=== PATIENT | female | born 1940 | race Asian ===

== ENCOUNTER 2016-12-31 20:14 | Inpatient (IN) | payer MEDICARE, MEDICAID ==
[~2016-12-31] VITALS: Ht 165.1 cm; Wt 68.7 kg
[~2016-12-31 20:14] MED LIST: AMLO10TA PO; MECL-305 PO; MONT10TA35 PO; OLAN5TAB29 PO; SYN.05 PO; VAS2.5 PO; [UNRECOGNIZED DRUG - CODE] PO
[2016-12-31 20:31] VITALS: BP 122/95
[2016-12-31 21:17] LABS: HEMATOCRIT 35.7 % (36-48); MEAN CORPUSCULAR HEMOGLOBIN 30 pg (27-31); MEAN CORPUSCULAR HGB CONC 34 g/dL (33-37); MEAN CORPUSCULAR VOLUME 88 fL (80-94); PLATELET COUNT (AUTO) 279 K/uL (140-450); RED BLOOD CELL COUNT(AUTO) 4.04 MIL/uL (4.20-5.40); RED CELL DISTRIBUTION WIDTH 14.3 % (11.6-13.7); WHITE BLOOD COUNT (AUTO) 8.7 K/uL (4.8-10.8)
--- NOTE | 2016-12-31 21:22 | NUR ---
Elvia fleming in [facility] - 12/31/16 at 2123 by MEDDM BIBA TO ER BED 5
--- NOTE | 2016-12-31 21:22 | NUR ---
[facility] FAMILY VIA WHEELCHAIR TO ER BED 5
[2016-12-31 21:29] LABS: ANION GAP 15.6 (8-16); CARBON DIOXIDE 23.5 mmol/L (21-32); CHLORIDE 95 mmol/L (98-107); CREATININE 0.9 mg/dL (0.6-1.3); GLUCOSE 130 mg/dL (74-106); POTASSIUM 4.1 mmol/L (3.5-5.1); SODIUM SERUM 130 mmol/L (136-145); UREA NITROGEN, BLOOD 15 mg/dL (7-18)
[2016-12-31 21:33] LABS: ALBUMIN 3.5 g/dL (3.4-5.0); ASPARTATE AMINOTRANSFERASE 23 U/L (15-37); LIPASE 84 U/L (73-393); LYMPHOCYTES % (MANUAL) 17 % (20-46); MONOCYTES % (MANUAL) 4 % (5-12); TOTAL BILIRUBIN 0.8 mg/dL (0.0-1.0)
[2016-12-31] MEDS ORDERED: NACL 0.9% 500 ML IV ONE (21:50)
[2016-12-31] MEDS ORDERED: MORPHINE SULFATE 2 MG/ML SYR IVP ONE (21:50)
[2016-12-31] MEDS ORDERED: ONDANSETRON 4 MG/2 ML VIAL IVP ONE (21:50)
--- NOTE | 2016-12-31 21:56 | NUR ---
Pt taken to CT via rcesar.
--- NOTE | 2016-12-31 22:54 | NUR ---
IV 24GA LT HAND, IVP/IVF MEDS GIVEN-NADR AT THIS TIME. NSR W/O ECT, RESP-E/U, VSS- 125/69BP, 77P, 98SAT% R/A, 25RR
--- NOTE | 2016-12-31 23:03 | NUR ---
76/F bib daughter with complaints of N/V/D and headache this am. No vomiting noted while pt in ED. Pt nigerien speaking only and daughter states pt's mental status is normal for her. VSS. Skin warm and dry normal in color for ethnicity.
--- NOTE | 2016-12-31 23:29 | NUR ---
Patient appears to be resting comfortably in bed. VSS.
[2017-01-01 00:29] LABS: APPEARANCE,URINE CLEAR (CLEAR); BILIRUBIN,URINE NEGATIVE (NEGATIVE); BLOOD, URINE 2+ (NEGATIVE); COLOR,URINE YELLOW (YELLOW); LEUKOCYTE ESTERASE ,URINE NEGATIVE (NEGATIVE); NITRITE, URINE NEGATIVE (NEGATIVE); PH,URINE 6.5 (5.0-9.0); UGLUCOSE NEGATIVE (NEGATIVE)
[2017-01-01 00:35] LABS: RBC,URINE 3-10 (FEW) /HPF (0-5); WBC,URINE 0-5 (RARE) /HPF (0-5)
[2017-01-01] MEDS ORDERED: MORPHINE SULFATE 2 MG/ML SYR IVP PRN (01:00)
[2017-01-01] MEDS ORDERED: ONDANSETRON 4 MG/2 ML VIAL IM/IVP PRN (01:00)
[2017-01-01] MEDS ORDERED: DOCUSATE SODIUM 100 MG GELCAP PO PRN (01:00)
[2017-01-01] MEDS ORDERED: HYDROcodone/APAP 7.5/325 MG 1 TAB PO PRN (01:00)
[2017-01-01] MEDS ORDERED: MECLIZINE 25 MG TAB PO PRN (01:05)
[2017-01-01 01:13] LABS: PROTHROMBIN TIME 11.8 secs (10.8-13.4)
[2017-01-01] MEDS ORDERED: VAS2.5 PO (01:19)
[2017-01-01] MEDS ORDERED: MECL-272 PO (01:19)
[2017-01-01] MEDS ORDERED: ACET-787 PO (01:19)
[2017-01-01] MEDS ORDERED: OLAN2.5T1 PO (01:19)
[2017-01-01] MEDS ORDERED: SYN.05 PO (01:19)
[2017-01-01] MEDS ORDERED: ESOM40EC PO (01:19)
[2017-01-01] MEDS ORDERED: METF500T PO (01:19)
[2017-01-01] MEDS ORDERED: AMLO10TA PO (01:19)
[2017-01-01] MEDS ORDERED: MONT10TA35 PO (01:19)
[2017-01-01] MEDS ORDERED: ASPI81CT89 PO (01:19)
[2017-01-01] MEDS ORDERED: METO25TE2 PO (01:19)
[2017-01-01] MEDS ORDERED: cefTRIAXone 1,000 MG VIAL ONE (01:24)
--- NOTE | 2017-01-01 01:27 | NUR ---
Patient will be admitted to care of Dr. Frye. Admited to TELE. Will go to room 124B. Belongings list completed. Report to Angelika BAXTER.
[2017-01-01 01:30] VITALS: BP 133/64
--- NOTE | 2017-01-01 01:30 | NUR ---
ADMITTED A 76F FORM ER. CAME BY CIARA ACCOMPANIED BY DAUGHTER,MK. AWAKE,ALERT AND ORIENTED X4. SPEAKS POLISH . ON TELE MONITOR-SR/BBB. CAME DUE TO , HEADACHE, DIZZINESS, VOMITING,FEVER AT HOME. X1 DAY. SKIN INTACT. ORIENTED TO HOSPITAL ROUTINES. AMBULATORY BUT DUE TO DIZZINESS, ADVISED TO BE ON BEDREST FOR NOW. HAS HL ON THE LT HAND#24. CLEAR AND PATENT. ROCEPHIN IV GIVEN IN ER. PLAN OF CARE DISCUSSED WITH PT/ FAMILY. VERBALIZED UNDERSTANDING. CALL LIGHT PLACED WITHIN EASY REACH. BED ON LOW POSITION. WILL CONTINUE TO MONITOR.
[2017-01-01 01:32] LABS: FREE T4 (FREE THYROXINE) 1.37 ng/dL (0.76-1.46); MAGNESIUM 1.6 mg/dL (1.8-2.4); PHOSPHORUS 2.9 mg/dL (2.5-4.9); THYROID STIMULATING HORMONE 1.39 uIU/mL (0.34-3.74)
[2017-01-01] MEDS: NACL 0.9% 1,000 ML IV SCH ×4 (01:47→22:53)
--- NOTE | 2017-01-01 01:47 | NUR ---
IVF NS @120 ML /HR STARTED ON THE LT HAND #24. CLEAR AND PATENT.
[2017-01-01] MEDS ORDERED: MAGNESIUM OXIDE 400 MG TAB PO SCH (01:50)
[2017-01-01] MEDS: ACETAMINOPHEN 325 MG TAB PO PRN (02:31)
--- NOTE | 2017-01-01 02:31 | NUR ---
MAG LEVEL 1.6, MAGNESIUM 400 MG PO GIVEN ORDERED.
[2017-01-01 04:15] VITALS: BP 114/57
[2017-01-01] MEDS: BLOOD GLUCOSE MONITORING 1 DEV DEV FS SCH ×5 (05:10→20:25)
--- NOTE | 2017-01-01 06:00 | NUR ---
SCD MACHINE APPLIED TO BOTH LOWER LEGS. PT AWARE OF THE BENEFITS/PURPOSE OF THE MACHINE.
--- NOTE | 2017-01-01 06:01 | NUR ---
BLOOD SUGAR WAS CHECKED RESULT 112.
[2017-01-01 06:09] LABS: HEMATOCRIT 32.3 % (36-48); HEMOGLOBIN 10.7 g/dL (12.0-16.0); MEAN CORPUSCULAR HEMOGLOBIN 30 pg (27-31); MEAN CORPUSCULAR HGB CONC 33 g/dL (33-37); MEAN CORPUSCULAR VOLUME 89 fL (80-94); PLATELET COUNT (AUTO) 245 K/uL (140-450); RED BLOOD CELL COUNT(AUTO) 3.62 MIL/uL (4.20-5.40); RED CELL DISTRIBUTION WIDTH 13.9 % (11.6-13.7); WHITE BLOOD COUNT (AUTO) 6.3 K/uL (4.8-10.8)
[2017-01-01 06:31] LABS: ANION GAP 15.6 (8-16); CARBON DIOXIDE 20.8 mmol/L (21-32); CHLORIDE 99 mmol/L (98-107); CREATININE 0.7 mg/dL (0.6-1.3); GLUCOSE 112 mg/dL (74-106); POTASSIUM 3.4 mmol/L (3.5-5.1); SODIUM SERUM 132 mmol/L (136-145); UREA NITROGEN, BLOOD 11 mg/dL (7-18)
--- NOTE | 2017-01-01 07:15 | NUR ---
ENDORSED PT IN STABLE CONDITION TO AM NURSE.
[2017-01-01 07:26] LABS: LYMPHOCYTES % (MANUAL) 21 % (20-46); MONOCYTES % (MANUAL) 9 % (5-12)
[2017-01-01 08:00] VITALS: BP 125/59
--- NOTE | 2017-01-01 08:10 | NUR ---
RECEIVED REPORT FROM GEOVANI RN FOR CONTINUITY OF CARE. PATIENT AWAKE A/OX4 SENEGALESE SPEAKING . NO S/S OF RESP DISTRESS NOTED. DENIES ANY PAIN. GENERALIZE WEAKNESS NOTED , INSTRUCT PATIENT TO USE CALL LIGHT , VERBALIZED UNDERSTANDING BED ALARM ON. IV SITE LEFT HAND GAUGE 24 INTACT AND PATENT. IVF INFUSING WELL. PLAN OF CARE DISCUSSED WITH THE PATIENT VITALS STABLE WILL CONTINUE TO MONITOR.
--- NOTE | 2017-01-01 08:55 | NUR ---
PATIENT HAS BEEN SCREENED AND CATEGORIZED HIGH NUTRITION RISK. PATIENT WILL BE SEEN WITHIN 1-2 DAYS OF ADMISSION. 01/01/17-01/02/[address]
[2017-01-01] MEDS: ASPIRIN 81 MG TAB.CHEW PO SCH (09:39)
[2017-01-01] MEDS: ENALAPRIL 2.5 MG TAB PO SCH (09:39)
[2017-01-01] MEDS: metFORMIN 500 MG TAB PO SCH (09:39)
[2017-01-01] MEDS: ATORVASTATIN 20 MG TAB PO SCH (09:39)
[2017-01-01] MEDS: amLODIPine 5 MG TAB PO SCH (09:40)
[2017-01-01] MEDS: METOPROLOL SUCCINATE 50 MG TABER PO SCH (09:40)
[2017-01-01] MEDS: LEVOTHYROXINE 0.05 MG TAB PO SCH (09:40)
[2017-01-01] MEDS: FAMOTIDINE 20 MG TAB PO SCH (09:40)
[2017-01-01] MEDS ORDERED: POTASSIUM CHLORIDE 10 MEQ TABER PO SCH (11:00)
[2017-01-01] MEDS ORDERED: MAG SULF 2000 MG/WATER PREMIX 50 ML IV SCH (11:00)
--- NOTE | 2017-01-01 11:44 | NUR ---
CHECKED BLOOD SUGAR 96 NO COVERAGE NEEDED , MG RIDER AND K40 MEQ PO GIVEN TOLERATED WELL. VITALS STABLE
[2017-01-01 12:00] VITALS: BP 108/56
--- NOTE | 2017-01-01 13:22 | NUR ---
ATE LUNCH TOLERATED WELL DENIES ANY PAIN
--- NOTE | 2017-01-01 14:40 | NUR ---
01/01/17 RD INITIAL ASSESSMENT COMPLETED PLEASE REFER TO NUTRITION ASSESSMENT UNDER CARE ACTIVITY FOR ESTIMATED NUTRITIONAL NEEDS. 1. CONTINUE CONSISTENT CHO DIET + 60G CCHO 2. RD TO FOLLOW UP WITHIN 3-5 DAYS; MODERATE RISK
[2017-01-01] MEDS ORDERED: LOPERAMIDE 2 MG CAP PO SCH (15:24)
--- NOTE | 2017-01-01 15:36 | NUR ---
CM NOTE INITIAL REVIEW FAXED TO [facility] / FAX# [phone], C: [phone], OPT. 2
--- NOTE | 2017-01-01 15:46 | NUR ---
PATIENT HAS DIARRHEA , BUT UNABLE TO COLLECT IT ,ACCIDENT ON THE BED IMODIUM GIVEN
[2017-01-01 16:00] VITALS: BP 113/58
--- NOTE | 2017-01-01 18:11 | NUR ---
PATIENT REMOVED IV LINE ACCIDENTALLY , NEW IV LINE STARTED ON LEFT HAND GAUGE 24 , INTACT AND PATENT IVF INFUSING WELL. SAFETY MAINTAINED CALL LIGHT IN REACH , STABLE CONDITION.
--- NOTE | 2017-01-01 19:30 | NUR ---
RECEIVED PT IN STABLE CONDITION FROM A M NURSE. AWAKE,ALERT AND ORIENTED X4. SPEAKS,TRISTANIAN. ON TELE MONITOR. WITH NO C/O ANY HEADACHE ,DIZZINESS AT THIS TIME. WITH IVF INFUSING WELL ON THE LT HAND #24. CLEAR AND PATENT. PLAN OF CARE DISCUSSED WITH PT/DAUGHTER. BOTH VERBALIZED UNDERSTANDING. FREQUENT ROUNDS NEEDED. CALL LIGHT PLACED WITHIN EASY REACH. WILL CONTINUE TO MONITOR.
[2017-01-01 19:40] VITALS: BP 116/56
[2017-01-01] MEDS: MONTELUKAST SODIUM 10 MG TAB PO SCH (20:25)
[2017-01-01] MEDS: OLANZapine 2.5 MG TAB PO SCH (20:26)
--- NOTE | 2017-01-01 20:50 | NUR ---
HAD LOOSE BM. STOOL SPECIMEN COLLECTED FOR CULTURE AND WBC. SEND TO LAB. WILL FOLLOW UP RESULT.
--- NOTE | 2017-01-01 22:30 | NUR ---
MADE AROUNDS. SLEEPING. NO S/S OF ANY DISCOMFORT NOTED.
[2017-01-02] VITALS: BP 112/51
[2017-01-02] MEDS: NACL 0.9% 1,000 ML IV SCH ×3 (01:57→18:16)
--- NOTE | 2017-01-02 02:00 | NUR ---
MADE ROUNDS . PT SLEEPING AT THIS TIME. NO S/S OF ANY DISCOMFORT NOTED.
--- NOTE | 2017-01-02 04:00 | NUR ---
VITAL SIGNS TAKEN. PT NO C/O ANY HEADACHE NOR DIZZINESS NOTED. WILL CONTINUE TO MONITOR.
[2017-01-02 04:14] VITALS: BP 128/59
--- NOTE | 2017-01-02 05:35 | NUR ---
BLOOD WAS DRAWN THIS AM. WILL FOLLOW UP RESULT.
[2017-01-02 05:55] LABS: HEMATOCRIT 33.8 % (36-48); HEMOGLOBIN 11.4 g/dL (12.0-16.0); MEAN CORPUSCULAR HEMOGLOBIN 30 pg (27-31); MEAN CORPUSCULAR HGB CONC 34 g/dL (33-37); MEAN CORPUSCULAR VOLUME 90 fL (80-94); PLATELET COUNT (AUTO) 252 K/uL (140-450); RED BLOOD CELL COUNT(AUTO) 3.75 MIL/uL (4.20-5.40); WHITE BLOOD COUNT (AUTO) 4.8 K/uL (4.8-10.8)
[2017-01-02] MEDS: BLOOD GLUCOSE MONITORING 1 DEV DEV FS SCH ×4 (06:00→21:22)
--- NOTE | 2017-01-02 06:00 | NUR ---
BLOOD SUGAR WAS CHECKED THIS AM RESULT 102.
[2017-01-02 06:25] LABS: LYMPHOCYTES % (MANUAL) 39 % (20-46); MONOCYTES % (MANUAL) 13 % (5-12)
[2017-01-02 06:45] LABS: ANION GAP 14.9 (8-16); CARBON DIOXIDE 21.8 mmol/L (21-32); CHLORIDE 107 mmol/L (98-107); CREATININE 0.7 mg/dL (0.6-1.3); GLUCOSE 101 mg/dL (74-106); POTASSIUM 3.7 mmol/L (3.5-5.1); SODIUM SERUM 140 mmol/L (136-145); UREA NITROGEN, BLOOD 5 mg/dL (7-18)
[2017-01-02 06:50] LABS: MAGNESIUM 1.9 mg/dL (1.8-2.4); PHOSPHORUS 2.3 mg/dL (2.5-4.9)
--- NOTE | 2017-01-02 07:20 | NUR ---
ENDORSED PT IN STABLE CONDITION TO AM NURSE FOR CONTINUITY OF CARE.
--- NOTE | 2017-01-02 07:21 | NUR ---
RECEIVED PT FROM GEOVANI RN AT BEDSIDE. PT IS SLEEPING. NO DISTRESS NOTED IN PT. PT HAS L HAND 22G RUNNING NS@120. CALL LIGHT WITHIN REACH. WILL CONTINUE TO MONITOR.
[2017-01-02 08:00] VITALS: BP 111/54
[2017-01-02] MEDS: metFORMIN 500 MG TAB PO SCH (08:05)
[2017-01-02] MEDS: amLODIPine 5 MG TAB PO SCH (08:05)
[2017-01-02] MEDS: ASPIRIN 81 MG TAB.CHEW PO SCH (08:05)
[2017-01-02] MEDS: FAMOTIDINE 20 MG TAB PO SCH (08:05)
[2017-01-02] MEDS: ENALAPRIL 2.5 MG TAB PO SCH (08:06)
[2017-01-02] MEDS: METOPROLOL SUCCINATE 50 MG TABER PO SCH (08:06)
[2017-01-02] MEDS: ATORVASTATIN 20 MG TAB PO SCH (08:06)
[2017-01-02] MEDS: LEVOTHYROXINE 0.05 MG TAB PO SCH (08:06)
[2017-01-02 09:14] LABS: T4 (THYROXINE) 7.7 ug/dL (4.5-12.0)
--- NOTE | 2017-01-02 09:20 | NUR ---
DAUGHTER IS WALKING WITH PT. TOLERATING WELL. CALL LIGHT WITHIN REACH. WILL CONTINUE TO MONITOR.
--- NOTE | 2017-01-02 11:40 | NUR ---
PT SAT UP IN BED TO EAT LUNCH. TOLERATED WELL. CALL LIGHT WITHIN REACH. WILL CONTINUE TO MONITOR.
[2017-01-02 11:45] VITALS: BP 107/51
--- NOTE | 2017-01-02 13:30 | NUR ---
PT RESTING COMFORTABLY IN BED. CALL LIGHT WITHIN REACH. WILL CONTINUE TO MONITOR.
--- NOTE | 2017-01-02 13:42 | NUR ---
CM NOTE CONCURRENT REVIEW FAXED TO [facility] / FAX# [phone], C: [phone], OPT. 2
--- NOTE | 2017-01-02 15:50 | NUR ---
VS STABLE. NO DISTRESS NOTED. CALL LIGHT WITHIN REACH. WILL CONTINUE TO MONITOR.
[2017-01-02 16:00] VITALS: BP 109/56
[2017-01-02] MEDS ORDERED: SODIUM PHOS / POTASSIUM PHOS 1 PKT PDR PO SCH (17:30)
--- NOTE | 2017-01-02 17:30 | NUR ---
DAUGHTER AT BEDSIDE. PT IN STABLE CONDITION. CALL LIGHT WITHIN REACH. WILL CONTINUE TO MONITOR.
--- NOTE | 2017-01-02 19:17 | NUR ---
ENDORSED CARE OF PT TO AISHA BAXTER AT BEDSIDE. PT IN STABLE CONDITION.
--- NOTE | 2017-01-02 19:23 | NUR ---
RECEIVED REPORT FROM DAY RN. PATIENT RESTING IN BED, AWAKE ALERT ORIENTED X4. NO S/S OF ACUTE DISTRESS NOTED, RESPIRATION EVEN AND UNLABORED, DAUGHTER AT BEDSIDE. IV PATENT AND INTACT, INFUSING NS AT 120ML/HR, CALL LIGHT WITHIN REACH, SAFETY MEASURE ENSURED, WILL CONTINUE TO MONITOR.
[2017-01-02 20:00] VITALS: BP 137/64
[2017-01-02] MEDS: OLANZapine 2.5 MG TAB PO SCH (21:20)
[2017-01-02] MEDS: MONTELUKAST SODIUM 10 MG TAB PO SCH (21:21)
--- NOTE | 2017-01-02 21:24 | NUR ---
PM MEDICATIONS GIVEN, PATIENT TOLERATED WELL. NO S/S OF ACUTE DISTRESS NOTED, RESPIRATION EVEN AND UNLABORED, WILL CONTINUE TO MONITOR.
--- NOTE | 2017-01-02 23:35 | NUR ---
PT WAS SLEEPING, VITAL SIGNS TAKEN, STABLE. WILL CONTINUE TO MONITOR.
[2017-01-03] VITALS: BP 116/68
[2017-01-03] MEDS: ACETAMINOPHEN 325 MG TAB PO PRN ×2 (01:00→08:38)
--- NOTE | 2017-01-03 01:00 | NUR ---
PATIENT STATED," HEADACHE, 06/20." TYLENOL GIVEN ORDERED. PATIENT RESTING IN BED, NO S/S OF ACUTE DISTRESS NOTED, RESPIRATION EVEN AND UNLABORED, SAFETY MEASURE ENSURED, WILL CONTINUE TO MONITOR.
--- NOTE | 2017-01-03 02:40 | NUR ---
PT SLEEPING AT THIS TIME NO S/S OF ACUTE DISTRESS NOTED, RESPIRATION EVEN AND UNLABORED, CALL LIGHT WITHIN REACH, SAFETY MEASURE ENSURED, WILL CONTINUE TO MONITOR.
[2017-01-03] MEDS: NACL 0.9% 1,000 ML IV SCH (03:48)
[2017-01-03 04:00] VITALS: BP 117/63
--- NOTE | 2017-01-03 04:02 | NUR ---
PT IN STABLE CONDITION. VITAL SIGNS STABLE. NO S/S OF ACUTE DISTRESS NOTED, CALL LIGHT WITHIN REACH, SAFETY MEASURE ENSURED, WILL CONTINUE TO MONITOR.
[2017-01-03] MEDS: BLOOD GLUCOSE MONITORING 1 DEV DEV FS SCH (06:33)
[2017-01-03 06:41] LABS: HEMATOCRIT 33.7 % (36-48); MEAN CORPUSCULAR HEMOGLOBIN 29 pg (27-31); MEAN CORPUSCULAR HGB CONC 33 g/dL (33-37); MEAN CORPUSCULAR VOLUME 90 fL (80-94); PLATELET COUNT (AUTO) 293 K/uL (140-450); RED BLOOD CELL COUNT(AUTO) 3.75 MIL/uL (4.20-5.40); RED CELL DISTRIBUTION WIDTH 14.3 % (11.6-13.7); WHITE BLOOD COUNT (AUTO) 4.8 K/uL (4.8-10.8)
--- NOTE | 2017-01-03 06:53 | NUR ---
PT SLEEPING AT THIS TIME. RESPIRATION EVEN AND UNLABORED, NO S/S OF ACUTE DISTRESS NOTED, CALL LIGHT WITHIN REACH, SAFETY MEASURE ENSURED, WILL CONTINUE TO MONITOR.
[2017-01-03 06:56] LABS: ANION GAP 13.4 (8-16); CHLORIDE 111 mmol/L (98-107); CREATININE 0.7 mg/dL (0.6-1.3); GLUCOSE 93 mg/dL (74-106); POTASSIUM 3.4 mmol/L (3.5-5.1); SODIUM SERUM 144 mmol/L (136-145); UREA NITROGEN, BLOOD 5 mg/dL (7-18)
[2017-01-03 07:05] LABS: LYMPHOCYTES % (MANUAL) 15 % (20-46); MONOCYTES % (MANUAL) 10 % (5-12)
--- NOTE | 2017-01-03 07:20 | NUR ---
ENDORSED THE PLAN OF CARE TO DAY RN. PATIENT IS IN STABLE CONDITION, NO ACUTE DISTRESS AND RESPIRATION EVEN AND UNLABORED.
--- NOTE | 2017-01-03 07:21 | NUR ---
RECEIVED REPORT FROM THE NIGHTSHIFT NURSE AT BEDSIDE FOR CONTINUITY OF CARE. PT IS AWAKE AND ORIENTED. INTRODUCED MYSELF AND UPDATED THE BOARD. PT IS EATING BREAKFAST. PT DENIES PAIN. V/S WITHIN NORMAL RANGE. PT'S SKIN IS INTACT. IV L HAND 24G NS AT 120ML INFUSING. PT DENIES HERRERA, NAUSEA, VOMITING, DIARRHEA OR DIZZINESS. WILL CONTINUE TO MONITOR PT.
[2017-01-03 08:00] VITALS: BP 130/67
[2017-01-03] MEDS: ATORVASTATIN 20 MG TAB PO SCH (08:33)
[2017-01-03] MEDS: ENALAPRIL 2.5 MG TAB PO SCH (08:33)
[2017-01-03] MEDS: ASPIRIN 81 MG TAB.CHEW PO SCH (08:33)
[2017-01-03] MEDS: METOPROLOL SUCCINATE 50 MG TABER PO SCH (08:33)
[2017-01-03] MEDS: LEVOTHYROXINE 0.05 MG TAB PO SCH (08:33)
[2017-01-03] MEDS: amLODIPine 5 MG TAB PO SCH (08:34)
[2017-01-03] MEDS: FAMOTIDINE 20 MG TAB PO SCH (08:34)
[2017-01-03] MEDS: metFORMIN 500 MG TAB PO SCH (08:34)
--- NOTE | 2017-01-03 08:39 | NUR ---
ADMINISTERED MORNING MEDS. PT C/O HERRERA 06/20. ADMINISTERED TYLENOL. PT TOLERATED WELL. WILL CONTINUE TO MONITOR PT.
--- NOTE | 2017-01-03 09:30 | NUR ---
PT AMBULATING IN THE HALLS WITH DAUGHTER AT HER SIDE. NO SIGNS OF DISTRESS NOTED.
[2017-01-03] MEDS ORDERED: ATOR20TA40 PO (09:55)
[2017-01-03] MEDS ORDERED: POTASSIUM CHLORIDE 10 MEQ TABER PO SCH (10:25)
--- NOTE | 2017-01-03 10:56 | NUR ---
DISCHARGE INSTRUCTIONS GIVEN TO PT AND DAUGHTER. ANSWERED ALL QUESTIONS. PT AND DAUGHTER VERBALIZED UNDERSTANDING. REMOVED TELE MONITOR. REMOVED IV, CANNULA IN TACT. NO BLEEDING NOTED. DAUGHTER WILL GET PT DRESSED, GATHER ALL HER PERSONAL BELONGINGS AND WILL LET ME KNOW WHEN SHE IS READY TO GO. WILL GET WHEEL CHAIR READY.
--- NOTE | 2017-01-03 11:00 | NUR ---
STUDENT PUSHED PT OUT TO THE CAR IN WHEELCHAIR. DAUGHTER WAITING IN THE CAR. PT IS IN STABLE CONDITION.
== END 2017-01-03 11:00 | disposition home or self-care (01) | DRG 640 ==
LOC: MED 20:14 → MTU 01-01 00:52
PROVIDERS: ADMIT Student in an Organized Health Care Education/Training Program; ATTEND Student in an Organized Health Care Education/Training Program
DX: E86.0 Dehydration (principal); I21.4 Non-ST elevation (NSTEMI) myocardial infarction; D68.59 Other primary thrombophilia; E11.65 Type 2 diabetes mellitus with hyperglycemia; E83.51 Hypocalcemia; E11.51 Type 2 diabetes mellitus with diabetic peripheral angiopathy without gangrene; E87.1 Hypo-osmolality and hyponatremia; E87.8 Other disorders of electrolyte and fluid balance, not elsewhere classified; E83.42 Hypomagnesemia; I10 Essential (primary) hypertension; J45.909 Unspecified asthma, uncomplicated; E03.9 Hypothyroidism, unspecified; R31.9 Hematuria, unspecified; E87.6 Hypokalemia; D64.9 Anemia, unspecified; E83.39 Other disorders of phosphorus metabolism; Z86.73 Personal history of transient ischemic attack (TIA), and cerebral infarction without residual deficits; Z79.82 Long term (current) use of aspirin; Z79.899 Other long term (current) drug therapy; Z79.84 Long term (current) use of oral hypoglycemic drugs
CPT/HCPCS: 36415; 70450; 71010; 76770; 80048; 80053; 81001; 82150; 82948; 83036; 83605; 83690; 83735; 83880; 84100; 84436; 84439; 84443; 84479; 84484; 85025; 85610; 85730; 87040; 87045; 87081; 89055; 93005; 93880; 93925; 93970; 96361; 96374; 96375; 99285; J0696; J2270; J2405; J3475; J7030; J7060; Q0092

== ENCOUNTER 2018-06-10 14:25 | Inpatient (IN) | payer OTHER, MEDICAID ==
[~2018-06-10] VITALS: Ht 157.5 cm; Wt 77.6 kg
[~2018-06-10 14:25] MED LIST changes: +ACET-787 PO; +ASPI-1718 PO; +ATOR20TA40 PO; +ESOM40EC PO; +MECL-272 PO; -MECL-305 PO; +METF500T PO; +METO25TE2 PO; +OLAN2.5T1 PO; -OLAN5TAB29 PO; -[UNRECOGNIZED DRUG - CODE] PO
[2018-06-10 14:30] VITALS: BP 119/58
[2018-06-10] MEDS ORDERED: DOCU-299 PO (14:51)
[2018-06-10] MEDS ORDERED: DETLA4 PO (14:51)
--- NOTE | 2018-06-10 14:55 | NUR ---
Pt. bib daughter with c/o increased aloc since this am. Per daughter, pt has increased "confusion" since this am. No facial/smile asymmetry noted. perrla to bl eyes. equal manufacturing design engineer to bl arms. equal push/pull to bl legs. pt is aaox3 to person, place, and situation. gcs=14. Patient denies any recent fall or head injury. Patient with steady gait. Daughter states " she is more with it now she was more confused earlier". redness and some bruising noted to upper back area. Patient reports of 8/10 constant right lateral upper back to right lateral mid back. Patient denies any fevers, dysuria, n/v/d, or chills. RR even and unlabored. Will continue to monitor. ER Md made aware. safety precautions in place. Pt able to follow commands via translation of daughter. hx--dm, htn, hypothyriodism, hyperlipidemia, arthitis, anxiety
--- NOTE | 2018-06-10 14:59 | NUR ---
RADIOLOGY AT BEDSIDE
[2018-06-10 15:17] LABS: BASOPHILS % (AUTO) 0.2 % (0.0-2.0); EOSINOPHILS % (AUTO) 0.1 % (0.0-4.0); HEMATOCRIT 41.4 % (36-48); HEMOGLOBIN 13.5 g/dL (12.0-16.0); LYMPHOCYTES # (AUTO) 1.2 K/uL (2.5-16.5); MEAN CORPUSCULAR HEMOGLOBIN 30 pg (27-31); MEAN CORPUSCULAR HGB CONC 33 g/dL (33-37); MONOCYTES # (AUTO) 0.8 K/uL (0.8-1.0); MONOCYTES % (AUTO) 8.2 % (1.7-9.3); NEUTROPHILS # (AUTO) 7.6 K/uL (1.8-7.7); NEUTROPHILS % (AUTO) 79.5 % (42.2-75.2); PLATELET COUNT (AUTO) 292 K/uL (140-450); RED CELL DISTRIBUTION WIDTH 14.9 % (11.6-13.7); WHITE BLOOD COUNT (AUTO) 9.6 K/uL (4.8-10.8)
--- NOTE | 2018-06-10 15:17 | NUR ---
pt. taken to ct via christian
[2018-06-10 15:18] LABS: APPEARANCE,URINE HAZY (CLEAR); BLOOD, URINE NEGATIVE (NEGATIVE); COLOR,URINE YELLOW (YELLOW); LEUKOCYTE ESTERASE ,URINE NEGATIVE (NEGATIVE); NITRITE, URINE NEGATIVE (NEGATIVE); UGLUCOSE NEGATIVE (NEGATIVE)
[2018-06-10 15:22] LABS: BILIRUBIN,URINE 1+ (NEGATIVE)
[2018-06-10 15:32] LABS: ALBUMIN 3.6 g/dL (3.4-5.0); ANION GAP 14.9 (8-16); ASPARTATE AMINOTRANSFERASE 25 U/L (15-37); CARBON DIOXIDE 23.5 mmol/L (21-32); CHLORIDE 97 mmol/L (98-107); CREATININE 1.5 mg/dL (0.6-1.3); GLUCOSE 237 mg/dL (74-106); POTASSIUM 4.4 mmol/L (3.5-5.1); SODIUM SERUM 131 mmol/L (136-145); TOTAL BILIRUBIN 0.9 mg/dL (0.0-1.0); UREA NITROGEN, BLOOD 24 mg/dL (7-18)
[2018-06-10] MEDS ORDERED: NACL 0.9% 1,000 ML IV ONE ×2 (16:15→17:40)
--- NOTE | 2018-06-10 16:43 | NUR ---
PT. RESTING COMFORTABLY IN BED, RR EVEN AND UNLABORED.HOB ELEVATED. BLANKETS PROVIDED. WILL CONTINUE TO MONITOR. DAUGHTER AT BEDSIDE.
[2018-06-10] MEDS ORDERED: HYDROcodone/APAP 5/325 MG 1 TAB TAB PO PRN (17:30)
[2018-06-10] MEDS ORDERED: ACETAMINOPHEN 325 MG TAB PO PRN (17:30)
[2018-06-10] MEDS ORDERED: DOCUSATE SODIUM 100 MG GELCAP PO PRN (17:30)
[2018-06-10] MEDS ORDERED: MORPHINE SULFATE 2 MG/ML SYR IVP PRN (17:30)
[2018-06-10] MEDS ORDERED: LORazepam 2 MG/ML VIAL IM/IVP PRN (17:30)
[2018-06-10] MEDS: NACL 0.9% 1,000 ML IV SCH (17:30)
[2018-06-10] MEDS ORDERED: ONDANSETRON 4 MG/2 ML VIAL IM/IVP PRN (17:30)
--- NOTE | 2018-06-10 17:40 | NUR ---
B/P 104/49. ER MD WALKER MADE AWARE. TO ORDER ANOTHER LITER OR FLUIDS.
[2018-06-10 17:55] LABS: PROTHROMBIN TIME 10.7 secs (10.8-13.4)
[2018-06-10 18:01] LABS: MAGNESIUM 1.6 mg/dL (1.8-2.4); PHOSPHORUS 2.7 mg/dL (2.5-4.9); THYROID STIMULATING HORMONE 0.54 uIU/mL (0.34-3.74)
--- NOTE | 2018-06-10 18:15 | NUR ---
Patient will be admitted to care of DR. TIAN. Admited to TELE . Will go to room 119B. Belongings list completed. Report to VEE LUGO .
--- NOTE | 2018-06-10 18:15 | NUR ---
RECEIVED REPORT FROM ER NURSE AT BEDSIDE. PT ADMITTED WITH DX OF HYPONATREMIA AND CONFUSION. KYRGYZ SPEAKING ONLY. PT DAUGHTER AT BEDSIDE. VS NORMAL . SKIN IS INTACT. PT HAS RT WRIST 22 G, IVF NS INFUSING BOLUS. PREPARED PT BED AND MADE PT COMFORTABLE. VS RECORDED T 98.2, HR 82, O2 97%, BP 140/56. DOCTOR TALKING TO PT. NO SIGN OF DISTRESS NOTED AT THIS TIME. MRSA NARES COLLECTED AND SENT TO LAB. ALL SAFETY MEASURE IN PLACE. WILL CONTINUE TO MONITOR PT.
[2018-06-10] MEDS ORDERED: MECLIZINE 25 MG TAB PO PRN (18:55)
[2018-06-10] MEDS ORDERED: MAGNESIUM OXIDE 400 MG TAB PO SCH (19:00)
--- NOTE | 2018-06-10 19:15 | NUR ---
RECEIVED REPORT FORM SITAL RN DAYSHIFT NURSE FOR CONTINUITY OF CARE, PT IN STABLE CONDITION.
[2018-06-10 19:30] VITALS: BP 121/58
--- NOTE | 2018-06-10 19:50 | NUR ---
RECEIVED CRITICAL LAB VALUE OF LACTIC ACID AT 2.3 DR. SALAZAR MADE AWARE, NEW ORDERS NOTED FOR LAB REDRAW IN THE AM.
--- NOTE | 2018-06-10 20:00 | NUR ---
PT SITTING UP IN BED EATING DINNER AT BEDSIDE. PT COMPLETED ABOUT 25% OF DINNER. DAUGHTER AT BEDSIDE. PT SPEAKS ONLY AFGHAN. DAUGHTER SAID THAT PT ORIENTATION IS AT BASELINE FOR HER AND THAT SHE HAS NO PAIN OR DISCOMFORT AT THIS TIME. IV SITE R HAND 22 GAUGE INTACT AND RUNNING NS BOLUS. LAB CALLED TO REPORT HIGH LACTIC ACID AT 2.3. DR. SALAZAR MADE AWARE, AND WILL ORDER REPEAT LACTIC ACID IN AM. V/S FOLLOWS T 99.8 P 76 R 18 B/P 124/65 02 96% ON R/A. WILL CONTINUE TO MONITOR PT FOR S/S OF PAIN , DISTRESS, CONFUSION AND LABS.
[2018-06-10] MEDS ORDERED: OLANZapine 2.5 MG TAB PO SCH (21:00)
[2018-06-10] MEDS ORDERED: TOLTERODINE LA 4 MG CAPER PO SCH (21:00)
[2018-06-10] MEDS: BLOOD GLUCOSE MONITORING 1 DEV DEV FS SCH (21:00)
--- NOTE | 2018-06-10 21:00 | NUR ---
PT GIVEN DUE MEDS OF SINGULAR, HEPARIN, MAG OXIDE. ZYPREXIA AND DETROL LA NOT FOUND CALLED [facility] TO FIND MEDICATION . [facility] WAS ABLE TO FIND ZYPREXIA AND ZYPREXIA WAS GIVEN, BUT NOT DETROL LA, WHICH IS UNAVAILABLE AT THIS TIME.
[2018-06-10] MEDS: MONTELUKAST SODIUM 10 MG TAB PO SCH (21:32)
[2018-06-10] MEDS ORDERED: OLANZapine 2.5 MG TAB ONE (22:00)
[2018-06-10] MEDS: INSULIN LISPRO SLIDING SCALE 100 UNITS/ML VIAL SUBQ PRN (22:04)
--- NOTE | 2018-06-11 | NUR ---
PT IN BED ASLEEP NO S/S OF PAIN OR DISTRESS NOTED. PT IN LOW BED WITH SIDE RAILS UP X2 AND LEONORA HOTL IN REACH. PT OFFERED TOILET BUT DECLINED AT THIS TIME. V/S FOLLOWS T 99.8 P 76 R 18 B/P 124/65 02 96% ON ROOM AIR. WILL CONTINUE TO MONITOR FOR COMFORT AND SAFETY. Addendum: 06/11/18 at 0212 by Kimberlee Alfaro RN LATEST V/S AT 0000 IS T 99.3 P 78 R 20 B/P 122/72 02 92% ON ROOM AIR.
[2018-06-11] MEDS: NACL 0.9% 1,000 ML IV SCH ×3 (03:58→23:58)
[2018-06-11 04:00] VITALS: BP 156/62
--- NOTE | 2018-06-11 05:15 | NUR ---
PT IN BED ASLEEP BUT AROUSABLE TO TOUCH. PT ESCORTED STANDBY ASSIST TO TOILET. PT HAS STEADY GAIT AND IS INDEPENDENT IN TOILET. IV SITYEE ON R HAND INTACT AND RUNNING N/S AT 100MLS/HR. NO BM THIS SHIFT. V/S FOLLOWS T 98.1 P 88 R 18/P 156/62 02 IS 97% ON ROOM AIR. BED LOW AND CALL HOLT IN REACH.
[2018-06-11] MEDS: LEVOTHYROXINE 0.05 MG TAB PO SCH (06:18)
[2018-06-11] MEDS: BLOOD GLUCOSE MONITORING 1 DEV DEV FS SCH ×4 (06:24→21:32)
[2018-06-11 07:20] LABS: BASOPHILS % (AUTO) 0.3 % (0.0-2.0); EOSINOPHILS % (AUTO) 0.3 % (0.0-4.0); HEMOGLOBIN 12.9 g/dL (12.0-16.0); LYMPHOCYTES # (AUTO) 1.2 K/uL (2.5-16.5); LYMPHOCYTES % (AUTO) 20.1 % (20.5-51.1); MEAN CORPUSCULAR HEMOGLOBIN 30 pg (27-31); MEAN CORPUSCULAR HGB CONC 33 g/dL (33-37); MEAN CORPUSCULAR VOLUME 91.6 fL (80-94); MONOCYTES % (AUTO) 16.5 % (1.7-9.3); NEUTROPHILS # (AUTO) 3.8 K/uL (1.8-7.7); NEUTROPHILS % (AUTO) 62.8 % (42.2-75.2); PLATELET COUNT (AUTO) 284 K/uL (140-450); RED BLOOD CELL COUNT(AUTO) 4.26 MIL/uL (4.20-5.40); RED CELL DISTRIBUTION WIDTH 14.3 % (11.6-13.7); WHITE BLOOD COUNT (AUTO) 6.1 K/uL (4.8-10.8)
--- NOTE | 2018-06-11 07:20 | NUR ---
RECEIVED BEDSIDE REPORT FROM ADILIA BAXTER. PATIENT AMBULATED TO BATHROOM AND IS CONTINENT. ON ROOM AIR, NO DISTRESS NOTED. PATIENT ON TELE MONITOR. IV ON R HAND 22 G INFUSING NS AT 100. IV ASYMPTOMATIC, INTACT AND PATENT. SKIN INTACT. BED IN LOW POSITION, CALL LIGHT WITHIN REACH. WILL CONTINUE TO MONITOR.
[2018-06-11 07:28] LABS: ANION GAP 13.4 (8-16); CARBON DIOXIDE 24.3 mmol/L (21-32); CHLORIDE 103 mmol/L (98-107); CREATININE 0.8 mg/dL (0.6-1.3); GLUCOSE 133 mg/dL (74-106); POTASSIUM 3.7 mmol/L (3.5-5.1); SODIUM SERUM 137 mmol/L (136-145); UREA NITROGEN, BLOOD 9 mg/dL (7-18)
[2018-06-11 07:30] LABS: MAGNESIUM 1.6 mg/dL (1.8-2.4); PHOSPHORUS 2.3 mg/dL (2.5-4.9)
[2018-06-11 07:34] LABS: CHOL/HDL RATIO 1.3 (1-4.5)
[2018-06-11 08:00] VITALS: BP 136/83
[2018-06-11] MEDS: TOLTERODINE LA 4 MG CAPER PO SCH (09:19)
[2018-06-11] MEDS: ATORVASTATIN 20 MG TAB PO SCH (09:19)
[2018-06-11] MEDS: PANTOPRAZOLE 40 MG TABEC PO SCH (09:19)
[2018-06-11] MEDS: METOPROLOL SUCCINATE 50 MG TABER PO SCH (09:20)
[2018-06-11] MEDS: amLODIPine 5 MG TAB PO SCH (09:21)
[2018-06-11] MEDS: ASPIRIN 81 MG TAB.CHEW PO SCH (09:21)
--- NOTE | 2018-06-11 09:30 | NUR ---
ADMINISTERED SCHEDULED MEDS. PATIENT TOLERATED WELL. WILL CONTINUE TO MONITOR.
--- NOTE | 2018-06-11 10:32 | NUR ---
PATIENT SLEEPING, ON ROOM AIR, NO DISTRESS NOTED. WILL CONTINUE TO MONITOR.
--- NOTE | 2018-06-11 10:50 | NUR ---
PATIENT AMBULATED TO RESTROOM W ASSIST. ON ROOM AIR, NO DISTRESS NOTED. WILL CONTINUE TO MONITOR.
[2018-06-11 12:00] VITALS: BP 135/67
[2018-06-11] MEDS ORDERED: SODIUM PHOS / POTASSIUM PHOS 1 PKT PDR PO SCH (12:00)
[2018-06-11] MEDS ORDERED: MAG SULF 2000 MG/WATER PREMIX 50 ML IV SCH (12:00)
--- NOTE | 2018-06-11 12:20 | NUR ---
DAUGHTER AT BEDSIDE. ADMINISTERED SCHEDULED MEDS. PATIENT TOLERATED WELL. WILL CONTINUE TO MONITOR. PATIENT NOW EATING LUNCH
--- NOTE | 2018-06-11 13:43 | NUR ---
PATIENT WATCHING TV. ON ROOM AIR, NO DISTRESS NOTED. WILL CONTINUE TO MONITOR.
[2018-06-11 16:00] VITALS: BP 116/63
--- NOTE | 2018-06-11 16:55 | NUR ---
PATIENT WATCHING TV. ON ROOM AIR, NO DISTRESS NOTED. WILL CONTINUE TO MONITOR.
--- NOTE | 2018-06-11 17:30 | NUR ---
PATIENT EATING DINNER. NO COMPLAINTS AT THIS TIME AND ON ROOM AIR. WILL CONTINUE TO MONITOR.
--- NOTE | 2018-06-11 19:19 | NUR ---
GAVE BEDSIDE REPORT TO VEE PAT. PATIENT ENDORSED IN STABLE CONDITION. WILL CONTINUE TO MONITOR.
--- NOTE | 2018-06-11 19:19 | NUR ---
RECEIVED REPORT FROM DANIEL BAXTER DAYSHIFT NURSE, AT BEDSIDE FOR CONTINUITY OF CARE, PT IN STABLE CONDITION.
[2018-06-11 20:00] VITALS: BP 146/70
[2018-06-11] MEDS: MONTELUKAST SODIUM 10 MG TAB PO SCH (21:10)
[2018-06-11] MEDS ORDERED: OLANZapine 5 MG TAB ONE (21:18)
--- NOTE | 2018-06-11 21:25 | NUR ---
PT IN BED NO S/SOF PAIN OR DISTRESS NOTED. IV SITE ON R HAND INTACT AND RUNNING N/S AT 100MLS/HR ORDERED. PT PT 10.7. DR. SALZAAR CALLED REGARDING WEATHER TO GIVEN THE HEPARIN SHOT FOR DVT PREVENTION, DR. SALAZAR SAID TO GIVEN THE HEPARIN SHOT. V/S FOLLOWS T 98.2 P 78 R 18 B/P 146/70 02 97% ON ROOM AIR. PT GIVEN SINGULAR ORDERED. ZYPREXA NOT AVAILABLE, [facility]ISSING MEDICATION.F/S IS 148 NO HUMALOG COVERAGE NEEDED.
[2018-06-11] MEDS: OLANZapine 5 MG TAB PO SCH (21:56)
[2018-06-12] VITALS: BP 121/60
--- NOTE | 2018-06-12 00:31 | NUR ---
PT IN BED SLEEP BUT AROUSABLE TO NAME AND LIGHT TOUCH. NO S/S OF PAIN OR DISTRESS NOTED. V/S FOLLOWS T 97.6 P 66 R 18 B/P 121/60 02 92% ON ROOM AIR. BED LOW AND CALL HOLT IN REACH.
[2018-06-12 04:00] VITALS: BP 136/58
--- NOTE | 2018-06-12 04:00 | NUR ---
PT IN LOW BED WITH SIDE RAILS UP X2 PT SLEEPING NO S/S OF PAIN OR DISTRESS NOTED PT AROUSABLE TO LIGHT TOUCH. V/S FOLLOWS T +97.0 P 68 R 18 B/P 136/58 02 98% ON ROOM AIR.
[2018-06-12] MEDS ORDERED: PNEUMOCOCCAL VACCINE 23 MCG/0.5 ML VIAL IMVAC SCH (06:10)
[2018-06-12] MEDS: LEVOTHYROXINE 0.05 MG TAB PO SCH (06:23)
[2018-06-12] MEDS: BLOOD GLUCOSE MONITORING 1 DEV DEV FS SCH ×4 (06:25→21:30)
--- NOTE | 2018-06-12 07:20 | NUR ---
PT CARE ENDORSED TO DANIEL BAXTER DAYSHIFT NURSE AT BEDSIDE FOR CONTINUITY OF CARE, PT IN STABLE CONDITION.
--- NOTE | 2018-06-12 07:23 | NUR ---
RECEIVED BEDSIDE REPORT FROM MACHINE CELL TUBER NURSE. AOX2 TO NAME AND PLACE, UNABLE TO ASSESS THE REST, SPEAKS [place] ONLY. DENIES PAIN. IN ROOM AIR. RESPIRATION EVEN AND UNLABORED. NO SIGNS OF DISTRESS NOTED. IV ON R HAND 22G, PATENT AND ASYMPTOMATIC, INFUSING PER MD ORDER. IV SITE CLEAN AND DRY. SKIN INTACT, CLEAN AND DRY. ABLE TO AMBULATE WITH STEADY GAIT WITH ASSIST. BEDSIDE COMMODE IS BY BEDSIDE. DISCUSSES PLAN OF CARE WITH PT, AND PT NODDED HER HEAD. CONTACT PRECAUTION IN PLACE AND SIGN POSTED.SAFETY MEASURES IN PLACE. BED IN LOW POSITION, AND CALL LIGHT WITHIN REACH.
[2018-06-12 07:56] LABS: BASOPHILS % (AUTO) 0.6 % (0.0-2.0); EOSINOPHILS # (AUTO) 0.1 K/uL (0-0.4); EOSINOPHILS % (AUTO) 2.5 % (0.0-4.0); HEMATOCRIT 38.3 % (36-48); HEMOGLOBIN 12.5 g/dL (12.0-16.0); LYMPHOCYTES # (AUTO) 2.2 K/uL (2.5-16.5); LYMPHOCYTES % (AUTO) 42.3 % (20.5-51.1); MEAN CORPUSCULAR HEMOGLOBIN 30 pg (27-31); MEAN CORPUSCULAR HGB CONC 33 g/dL (33-37); MEAN CORPUSCULAR VOLUME 91.7 fL (80-94); MONOCYTES # (AUTO) 0.8 K/uL (0.8-1.0); MONOCYTES % (AUTO) 16.1 % (1.7-9.3); NEUTROPHILS % (AUTO) 38.5 % (42.2-75.2); PLATELET COUNT (AUTO) 287 K/uL (140-450); RED BLOOD CELL COUNT(AUTO) 4.18 MIL/uL (4.20-5.40); RED CELL DISTRIBUTION WIDTH 14.7 % (11.6-13.7); WHITE BLOOD COUNT (AUTO) 5.3 K/uL (4.8-10.8)
[2018-06-12 07:58] LABS: ANION GAP 12.8 (8-16); CARBON DIOXIDE 23.9 mmol/L (21-32); CHLORIDE 108 mmol/L (98-107); CREATININE 0.7 mg/dL (0.6-1.3); GLUCOSE 108 mg/dL (74-106); POTASSIUM 3.7 mmol/L (3.5-5.1); SODIUM SERUM 141 mmol/L (136-145); UREA NITROGEN, BLOOD 8 mg/dL (7-18)
[2018-06-12 07:59] LABS: MAGNESIUM 1.9 mg/dL (1.8-2.4); PHOSPHORUS 2.5 mg/dL (2.5-4.9)
[2018-06-12 08:00] VITALS: BP 128/61
--- NOTE | 2018-06-12 08:12 | NUR ---
DAUGHTER MK IS AT BEDSIDE. SHE WANTED TO WALK THE PT ON [address]. CHECKED PT GAIT AND PT WAS ABLE TO WALK WITH A STEADY GAIT WITH MINIMAL ASSISTANCE.
--- NOTE | 2018-06-12 08:44 | NUR ---
IS TALKING TO THE PT AND DAUGHTER MK AT BEDSIDE.
--- NOTE | 2018-06-12 09:43 | NUR ---
PT IS AMBULATING WITH PHYSICAL THERAPIST.
[2018-06-12] MEDS: ASPIRIN 81 MG TAB.CHEW PO SCH (10:15)
--- NOTE | 2018-06-12 10:15 | NUR ---
VITAL SIGNS TAKEN PRIOR TO MEDICATIONS ADMINISTRATION; B/P 131/66, PULSE 64, TEMP 98, SPO2 P9, RR 18 AND DENIES PAIN. ADMINISTERED MEDS PER MD ORDER, PT TOLERATED WELL.
[2018-06-12] MEDS: ATORVASTATIN 20 MG TAB PO SCH (10:16)
[2018-06-12] MEDS: amLODIPine 5 MG TAB PO SCH (10:17)
[2018-06-12] MEDS: PANTOPRAZOLE 40 MG TABEC PO SCH (10:17)
[2018-06-12] MEDS: METOPROLOL SUCCINATE 50 MG TABER PO SCH (10:23)
[2018-06-12] MEDS: TOLTERODINE LA 4 MG CAPER PO SCH (10:23)
[2018-06-12] MEDS: NACL 0.9% 1,000 ML IV SCH ×2 (10:30→21:41)
[2018-06-12 12:00] VITALS: BP 137/61
--- NOTE | 2018-06-12 12:45 | NUR ---
PT IS WATCHING TV ON BED. NO SIGNS OF DISTRESS NOTED.
--- NOTE | 2018-06-12 14:17 | NUR ---
PT IS SLEEPING ON BED AT THIS TIME. NO SIGNS OF DISTRESS NOTED.
--- NOTE | 2018-06-12 15:40 | NUR ---
PT'S DAUGHTER [place] AT BEDSIDE. PT DENIES OF PAIN. NO SIGNS OF DISTRESS NOTED. PROVIDED EXTRA WARM BLANKET TO PT.
[2018-06-12 16:00] VITALS: BP 137/74
--- NOTE | 2018-06-12 19:05 | NUR ---
PT'S FAMILY IS AT BEDSIDE. NO SIGNS OF DISTRESS NOTED.
--- NOTE | 2018-06-12 19:25 | NUR ---
RECEIVED FROM AM RN IN BED AWAKE AND ALERT. FAMILY MEMBERS IN HERE VISITING. DAUGHTER ABLE TO VERBALIZE WELL IN MALAY. INTERPRETING TO MOTHER/PT. PT. AFFECT GOOD. ABLE TO VERBALIZE WELL WITH FAMILY MEMBERS IN THEIR DIALECT. CARE PLANS FOR THE NIGHT DISCUSSED WITH THEM. CALL LIGHT WITHIN REACH. TELEMETRY MONITORING.
--- NOTE | 2018-06-12 19:30 | NUR ---
ENDORSED PATIENT TO PHARMACEUTICAL PHYSICIAN NURSE FOR CONTINUITY OF CARE. PATIENT IS IN STABLE CONDITION.
[2018-06-12 20:00] VITALS: BP 134/70
[2018-06-12] MEDS ORDERED: DOCUSATE SODIUM 100 MG GELCAP PO SCH (20:06)
[2018-06-12] MEDS ORDERED: BISACODYL 10 MG SUPP RC SCH (21:00)
[2018-06-12] MEDS: MONTELUKAST SODIUM 10 MG TAB PO SCH (21:26)
[2018-06-12] MEDS: OLANZapine 5 MG TAB PO SCH (21:27)
[2018-06-12] MEDS: INSULIN LISPRO SLIDING SCALE 100 UNITS/ML VIAL SUBQ PRN (21:30)
--- NOTE | 2018-06-12 21:30 | NUR ---
PT. BLOOD SUGAR CHECK DONE PER FINGERSTICK. 159 AND COVERED WITH HUMALOG 2 UNITS. DIABETIC SNACK PROVIDED.
--- NOTE | 2018-06-12 22:35 | NUR ---
PT. SEEN AMBULATING WELL TO RESTROOM INSIDE ROOM. ROM X 4. CLEAR SPEECH. ABLE TO SAY [place]EEPEE AND NO POPOO . SMILING. GOOD AFFECT. CALL LIGHT WITH IN REACH. PT. AWARE OF IT'S USE.
[2018-06-13 01:06] VITALS: BP 155/74
--- NOTE | 2018-06-13 01:08 | NUR ---
PT. AWAKE AND ASSISTED TO RESTROOM TO URINATE. VITAL SIGNS TAKEN. NO PAIN COMPLAINTS DONE. SMILING. IVF SITE INTACT AND NO INFILTRATION. GOOD BLOOD RETURN. TELEMETRY MONITORING.
[2018-06-13 04:21] VITALS: BP 136/76
--- NOTE | 2018-06-13 04:23 | NUR ---
PT. ASSISTED TO RESTROOM. URINATED. NO COMPLAINTS OF PAIN DONE. NO RESTLESSNESS. IVF SITE INTACT AND NO INFILTRATION.
[2018-06-13] MEDS: NACL 0.9% 1,000 ML IV SCH (05:58)
[2018-06-13] MEDS: LEVOTHYROXINE 0.05 MG TAB PO SCH (06:18)
[2018-06-13] MEDS: BLOOD GLUCOSE MONITORING 1 DEV DEV FS SCH ×2 (06:19→11:34)
--- NOTE | 2018-06-13 06:42 | NUR ---
PT. HAD A BIG SOLID BM AT THIS TIME. PT. SMILING AND HAPPY WITH BM. NO PAIN COMPLAINTS DONE.
--- NOTE | 2018-06-13 07:28 | NUR ---
ENDORSED TO THE NEXT RN FOR CONTINUITY OF CARE. AWAKE. NO RESTLESSNESS NOTED. CALL LIGHT WITH IN REACH. TELEMETRY MONITORING.
--- NOTE | 2018-06-13 07:30 | NUR ---
RECEIVED PT FROM DIESEL AUTOMOTIVE TECHNICIAN NURSEAUGUSTINE, PT IS AWAKE AND LYING ON THE BED WITH SIDE RAILS UP AND CALL LIGHT WITHIN REACH, SAFETY PRECAUTION ENFORCED, PT HAS AN IV LINE ON THE RT HAND G.22 INTACT WITH NS INFUSING AT 100ML/HR, INTACT, PT DENIES PAIN AND NO SOB NOTED. NO SIGN OF DISTRESS NOTED AND WILL CONTINUE TO MONITOR PT.
[2018-06-13 07:33] LABS: EOSINOPHILS # (AUTO) 0.1 K/uL (0-0.4); EOSINOPHILS % (AUTO) 3.1 % (0.0-4.0); HEMATOCRIT 38.2 % (36-48); HEMOGLOBIN 12.8 g/dL (12.0-16.0); LYMPHOCYTES # (AUTO) 2.5 K/uL (2.5-16.5); LYMPHOCYTES % (AUTO) 51.2 % (20.5-51.1); MEAN CORPUSCULAR HEMOGLOBIN 30 pg (27-31); MEAN CORPUSCULAR HGB CONC 34 g/dL (33-37); MEAN CORPUSCULAR VOLUME 90.7 fL (80-94); MONOCYTES # (AUTO) 0.5 K/uL (0.8-1.0); MONOCYTES % (AUTO) 10.8 % (1.7-9.3); NEUTROPHILS # (AUTO) 1.6 K/uL (1.8-7.7); NEUTROPHILS % (AUTO) 33.9 % (42.2-75.2); PLATELET COUNT (AUTO) 298 K/uL (140-450); RED BLOOD CELL COUNT(AUTO) 4.21 MIL/uL (4.20-5.40); RED CELL DISTRIBUTION WIDTH 14.6 % (11.6-13.7); WHITE BLOOD COUNT (AUTO) 4.8 K/uL (4.8-10.8)
[2018-06-13 07:49] LABS: ANION GAP 13.2 (8-16); CARBON DIOXIDE 23.2 mmol/L (21-32); CHLORIDE 109 mmol/L (98-107); CREATININE 0.7 mg/dL (0.6-1.3); GLUCOSE 113 mg/dL (74-106); POTASSIUM 3.4 mmol/L (3.5-5.1); SODIUM SERUM 142 mmol/L (136-145); UREA NITROGEN, BLOOD 7 mg/dL (7-18)
[2018-06-13 07:51] LABS: MAGNESIUM 1.6 mg/dL (1.8-2.4); PHOSPHORUS 2.9 mg/dL (2.5-4.9)
[2018-06-13 08:00] VITALS: BP 134/70
[2018-06-13] MEDS: PANTOPRAZOLE 40 MG TABEC PO SCH (09:11)
[2018-06-13] MEDS: ATORVASTATIN 20 MG TAB PO SCH (09:12)
[2018-06-13] MEDS: TOLTERODINE LA 4 MG CAPER PO SCH (09:12)
[2018-06-13] MEDS: METOPROLOL SUCCINATE 50 MG TABER PO SCH (09:14)
[2018-06-13] MEDS: ASPIRIN 81 MG TAB.CHEW PO SCH (09:14)
[2018-06-13] MEDS: amLODIPine 5 MG TAB PO SCH (09:15)
--- NOTE | 2018-06-13 09:15 | NUR ---
PT IS AWAKE AND SEATED ON THE BED, VITAL SIGNS TAKEN AND IS WITHIN NORMAL LIMIT, ORAL MEDICATIONS GIVEN AND PT TOLERATED THE MEDICATIONS, NO SIGN OF DISTRESS NOTED AND WILL MONITOR PT.
--- NOTE | 2018-06-13 10:29 | NUR ---
PT IS AWAKE AND LYING ON THE BED, PT WAS INFORMED THAT K AND MG LEVEL ARE BELOW NORMAL RANGE AND MD ORDERED A K AND MG ORAL SUPPLEMENTS AND PT TOLERATED IT. NO SIGN OF DISTRESS NOTED AND WILL MONITOR PT.
[2018-06-13] MEDS ORDERED: MAGNESIUM OXIDE 400 MG TAB PO SCH (10:30)
[2018-06-13] MEDS ORDERED: POTASSIUM CHLORIDE 10 MEQ TABER PO SCH (10:30)
[2018-06-13] MEDS: INSULIN LISPRO SLIDING SCALE 100 UNITS/ML VIAL SUBQ PRN (11:36)
--- NOTE | 2018-06-13 11:40 | NUR ---
PT IS AWAKE AND SEATED ON THE BED, BLOOD GLUCOSE CHECKED DONE AND RESULT IS 153 AND INSULIN COVERAGE WAS GIVEN IN THE RT UA, PT TOLERATED IT, PT WAS GIVEN THE PNA VACCINE ALSO ON THE LEFT UA. NO SIGN OF DISTRESS NOTED AND WILL MONITOR PT.
[2018-06-13 12:00] VITALS: BP 128/66
--- NOTE | 2018-06-13 12:54 | NUR ---
CALLED [facility] SPOKE WITH [employer] ,FAXED [facility] NURSE WILL VISIT TOMORROW NOTIFIED DAUGHTER VERIFIED THE ADDRESS .
--- NOTE | 2018-06-13 13:30 | NUR ---
DISCHARGED PT VIA WHEELCHAIR WITH THE DAUGHTER, IV AND ARM BAND REMOVED, DISCHARGED TEACHINGS AND INSTRUCTIONS GIVEN TO PT WITH DAUGHTER ON THE BEDSIDE AND PT VERBALIZED UNDERSTANDING. PT IS STABLE AT THIS TIME.
--- NOTE | 2018-06-14 09:58 | NUR ---
PER REQUEST OF KATHY FROM [facility], FAXED H&P TO HER AT [phone]
== END 2018-06-13 13:30 | disposition home health service (06) | DRG 682 ==
LOC: MED 14:25 → MTU 17:30
PROVIDERS: ADMIT General Practice; ATTEND General Practice
PROC: 3E0234Z Introduction of Serum, Toxoid and Vaccine into Muscle, Percutaneous Approach (ICD-10-PCS; principal; 2018-06-12)
DX: N17.0 Acute kidney failure with tubular necrosis (principal); G93.41 Metabolic encephalopathy; E87.1 Hypo-osmolality and hyponatremia; D68.59 Other primary thrombophilia; E87.2 Acidosis; J45.909 Unspecified asthma, uncomplicated; E11.9 Type 2 diabetes mellitus without complications; I10 Essential (primary) hypertension; E03.9 Hypothyroidism, unspecified; E78.5 Hyperlipidemia, unspecified; F41.9 Anxiety disorder, unspecified; K21.9 Gastro-esophageal reflux disease without esophagitis; N32.81 Overactive bladder; E83.42 Hypomagnesemia; E83.39 Other disorders of phosphorus metabolism; E11.65 Type 2 diabetes mellitus with hyperglycemia; Z23 Encounter for immunization
CPT/HCPCS: 36415; 70450; 71045; 80048; 80053; 81003; 82140; 82150; 82550; 82553; 82948; 83036; 83605; 83690; 83735; 83880; 84100; 84443; 84484; 85025; 85610; 85730; 87040; 87081; 87086; 89055; 90732; 93005; 93880; 96360; 96361; 97110; 97116; 97530; 99285; J1644; J1815; J3475; J7030; Q0092

== ENCOUNTER 2018-09-02 20:06 | Emergency (ER) | payer OTHER, MEDICAID ==
[~2018-09-02] VITALS: Ht 162.6 cm; Wt 78.9 kg
[~2018-09-02 20:06] MED LIST changes: +DETLA4 PO; +DOCU-299 PO; -VAS2.5 PO
[2018-09-02 20:17] VITALS: BP 140/63
--- NOTE | 2018-09-02 20:17 | NUR ---
PT TAKEN TO BED 9
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
--- NOTE | 2018-09-02 20:27 | NUR ---
Dr. Stone evaluating patient at bedside.
[2018-09-02 20:50] VITALS: BP 140/63
--- NOTE | 2018-09-02 20:50 | NUR ---
Patient discharged with v/s stable. Written and verbal after care instructions given and explained. Patient alert, oriented and verbalized understanding of instructions. Ambulatory with steady gait. All questions addressed prior to discharge. ID band removed. Patient advised to follow up with [facility] as soon as possible and to return to ED if fever or worsening symptoms develop. Rx of Bactrim DS given. Patient educated on indication of medication including possible reaction and side effects. Opportunity to ask questions provided and answered.
== END 2018-09-02 20:50 | disposition home or self-care (01) ==
LOC: MED 20:06
DX: T24.012A Burn of unspecified degree of left thigh, initial encounter (principal); E11.9 Type 2 diabetes mellitus without complications; I10 Essential (primary) hypertension; E07.9 Disorder of thyroid, unspecified; Z79.84 Long term (current) use of oral hypoglycemic drugs; Z79.82 Long term (current) use of aspirin; Z79.899 Other long term (current) drug therapy; X08.8XXA Exposure to other specified smoke, fire and flames, initial encounter; Y93.89 Activity, other specified; Y92.89 Other specified places as the place of occurrence of the external cause; Y99.8 Other external cause status
CPT/HCPCS: 99283

== ENCOUNTER 2019-01-31 22:27 | Emergency (ER) | payer OTHER, MEDICAID ==
[~2019-01-31] VITALS: Ht 162.6 cm; Wt 79.8 kg
[2019-01-31 23:30] VITALS: BP 140/86
--- NOTE | 2019-02-01 01:16 | NUR ---
PT AMBULATED TO BED WITH WALKER WITH FAMILY
--- NOTE | 2019-02-01 01:20 | NUR ---
78/F PRESENTED TO ED WITH /CO EXACERBATION OF CHRONIC UPPER BACK AND MID BACK PAIN, X1 DAY. REPORTS HEADACHE. REPORTS VOMITING. HX HTN, DM, HYPOTHYROID, NORCO AND TYLENOL AT 1300 WITHOUT RELIEF
--- NOTE | 2019-02-01 01:29 | NUR ---
PT EVALUTED BY DR. HAAS
[2019-02-01] MEDS ORDERED: fentaNYL 0.05 MG/ML VIAL IM ONE (02:10)
--- NOTE | 2019-02-01 03:00 | NUR ---
PT SITTING IN BED WITH DAUGHTER AT BEDSIDE. STATES SHE HAS NO PAIN. SHE "FEELS BETTER". WILL CONTINUE TO MONITOR
[2019-02-01 03:42] VITALS: BP 122/64
--- NOTE | 2019-02-01 03:42 | NUR ---
Patient discharged with v/s stable. Written and verbal after care instructions given and explained. Patient verbalized understanding. Ambulatory with steady gait. All questions addressed prior to discharge. Advised to follow up with PMD.
== END 2019-02-01 03:42 | disposition home or self-care (01) ==
LOC: MED 22:27
DX: M54.5 Low back pain (principal); R11.10 Vomiting, unspecified; R10.9 Unspecified abdominal pain; E11.9 Type 2 diabetes mellitus without complications; I10 Essential (primary) hypertension; E07.9 Disorder of thyroid, unspecified; Z79.82 Long term (current) use of aspirin; Z79.84 Long term (current) use of oral hypoglycemic drugs; Z79.899 Other long term (current) drug therapy
CPT/HCPCS: 96372; 99283; J3010

== ENCOUNTER 2022-07-14 01:40 | Inpatient (IN) | payer OTHER, MEDICAID ==
[~2022-07-14] VITALS: Ht 160 cm; Wt 77.1 kg
[~2022-07-14 01:40] MED LIST changes: -ACET-787 PO; -ASPI-1718 PO; +ASPI-1822 PO; +HYDR-5191 PO; -MECL-272 PO; +MECL-303 PO; +METF-346 PO; -METF500T PO; +MONT-72 PO; -MONT10TA35 PO
[2022-07-14 01:45] VITALS: BP 122/61
--- NOTE | 2022-07-14 01:45 | NUR ---
TO BED VIA W/C
[2022-07-14] MEDS ORDERED: NACL 0.9% 1,000 ML IV ONE (02:20)
--- NOTE | 2022-07-14 02:30 | NUR ---
Patient received on bed lying comfortably and asleep. No acute distress. No signs of pain or discomfort. Respirations even and unlabored.
--- NOTE | 2022-07-14 02:44 | NUR ---
X-Ray at bedside.
[2022-07-14 03:36] LABS: BASOPHILS % (AUTO) 0.6 % (0.0-2.0); EOSINOPHILS # (AUTO) 0.1 K/uL (0-0.4); EOSINOPHILS % (AUTO) 0.7 % (0.0-4.0); HEMATOCRIT 41.5 % (36-48); HEMOGLOBIN 13.9 g/dL (12.0-16.0); LYMPHOCYTES # (AUTO) 1.8 K/uL (2.5-16.5); LYMPHOCYTES % (AUTO) 19.9 % (20.5-51.1); MEAN CORPUSCULAR HEMOGLOBIN 29 pg (27-31); MEAN CORPUSCULAR HGB CONC 33 g/dL (33-37); MEAN CORPUSCULAR VOLUME 86.8 fL (80-94); MONOCYTES # (AUTO) 1.1 K/uL (0.8-1.0); MONOCYTES % (AUTO) 12.6 % (1.7-9.3); NEUTROPHILS # (AUTO) 5.9 K/uL (1.8-7.7); NEUTROPHILS % (AUTO) 66.2 % (42.2-75.2); PLATELET COUNT (AUTO) 289 K/uL (140-450); RED BLOOD CELL COUNT(AUTO) 4.78 MIL/uL (4.20-5.40); RED CELL DISTRIBUTION WIDTH 15.5 % (11.6-13.7); WHITE BLOOD COUNT (AUTO) 8.8 K/uL (4.8-10.8)
[2022-07-14 03:57] LABS: ALBUMIN 3.5 g/dL (3.4-5.0); ASPARTATE AMINOTRANSFERASE 34 U/L (15-37); CARBON DIOXIDE 25.5 mmol/L (21-32); CHLORIDE 96 mmol/L (98-107); CREATININE 1.1 mg/dL (0.6-1.3); GLUCOSE 254 mg/dL (74-106); SODIUM SERUM 134 mmol/L (136-145); TOTAL BILIRUBIN 1.1 mg/dL (0.0-1.0); UREA NITROGEN, BLOOD 14 mg/dL (7-18)
[2022-07-14 03:59] LABS: APPEARANCE,URINE CLEAR (CLEAR); BILIRUBIN,URINE NEGATIVE (NEGATIVE); BLOOD, URINE TRACE-I (NEGATIVE); COLOR,URINE YELLOW (YELLOW); LEUKOCYTE ESTERASE ,URINE NEGATIVE (NEGATIVE); NITRITE, URINE NEGATIVE (NEGATIVE); PH,URINE 6.5 (5.0-9.0); UGLUCOSE 1+ (NEGATIVE)
[2022-07-14 04:02] LABS: ANION GAP 15.3 (8-16); POTASSIUM 2.8 mmol/L (3.5-5.1)
[2022-07-14] MEDS ORDERED: KCL 20 MEQ IN 100 mL PREMIX 100 ML IV ONE (04:05)
--- NOTE | 2022-07-14 04:20 | NUR ---
PT MOVED TO ER BED 7
--- NOTE | 2022-07-14 04:21 | NUR ---
Called daughter to inquire of patient's list of home medications. No answer from the daughter. Will call again later.
[2022-07-14] MEDS ORDERED: cefTRIAXone 1,000 MG VIAL ONE (06:03)
--- NOTE | 2022-07-14 06:08 | NUR ---
Dr. Frederick spoke with patient's family to treatment plans.
[2022-07-14] MEDS ORDERED: FURO-570 PO (06:36)
[2022-07-14] MEDS ORDERED: MEMA10TA PO (06:36)
[2022-07-14] MEDS ORDERED: SYN.05 PO (06:36)
[2022-07-14] MEDS ORDERED: METF-346 PO (06:36)
[2022-07-14] MEDS ORDERED: ACET-9533 PO (06:36)
[2022-07-14] MEDS ORDERED: ASPI-1822 PO (06:36)
[2022-07-14] MEDS ORDERED: DOCU-299 PO (06:36)
[2022-07-14] MEDS ORDERED: AMLO10TA PO (06:36)
[2022-07-14] MEDS ORDERED: DETLA4 PO (06:36)
[2022-07-14] MEDS ORDERED: OMEP20EC11 PO (06:36)
[2022-07-14] MEDS ORDERED: METO25TE2 PO (06:37)
[2022-07-14] MEDS ORDERED: MONT-72 PO ×2 (06:37)
[2022-07-14] MEDS ORDERED: DONE5TAB6 PO (06:37)
[2022-07-14] MEDS ORDERED: ATOR20TA PO (06:37)
[2022-07-14] MEDS ORDERED: OLAN2.5T1 PO (06:37)
--- NOTE | 2022-07-14 09:24 | NUR ---
PATIENT HAS BEEN SCREENED AND CATEGORIZED MODERATE NUTRITION RISK. PATIENT WILL BE SEEN WITHIN 3-5 DAYS OF ADMISSION. REVIEWED BY FIDELINA CAMARENA RD
--- NOTE | 2022-07-14 10:15 | NUR ---
RECEIVED REPORT FROM ER NURSE. PT ARRIVED TO [facility] UNIT VIA GURNEY. DAUGHTER AT BESIDE. PT AOX3, 2LNC, BEDREST, IV TO RIGHT AC 20G CLEAN AND INTACT. ORIENTED PT TO BED MECHANICS, CALL LIGHT, TV. BED IN LOWEST POSITION, 2 SIDE RAILS UP, CALL LIGHT WITHIN REACH. DAUGHTER ([place],
[2022-07-14] MEDS ORDERED: NACL 0.9% 1,000 ML IV SCH (10:20)
[2022-07-14] MEDS ORDERED: MECLIZINE 25 MG TAB PO PRN (10:20)
[2022-07-14] MEDS ORDERED: MAG SULF 2000 MG/WATER PREMIX 50 ML IV PRN (10:20)
[2022-07-14] MEDS ORDERED: ONDANSETRON 4 MG/2 ML VIAL IVP PRN (10:20)
[2022-07-14] MEDS ORDERED: ACETAMINOPHEN 325 MG TAB PO PRN (10:20)
[2022-07-14] MEDS ORDERED: HYDROcodone/APAP 7.5/325 MG 1 TAB PO PRN (10:20)
[2022-07-14] MEDS ORDERED: DEXTROSE 50% 50 ML SYR IVP PRN (10:40)
--- NOTE | 2022-07-14 10:59 | NUR ---
Patient will be admitted to care of ANTHONY. Admited to [luzma TELE Will go to room[105A]. Belongings list completed. Report to [BRITANY].
[2022-07-14] MEDS: AZITHROMYCIN 250 MG in DEXTROSE 5% 250 ML IV SCH (12:00)
--- NOTE | 2022-07-14 12:00 | NUR ---
DAUGHTER CONTACT INFO: NAME: MK CELL: HOME: DAUGHTER STATES WILL COME TO VISIT AGAIN TOMORROW (07/15/22) AROUND 11AM.
[2022-07-14] MEDS: BLOOD GLUCOSE MONITORING 1 DEV DEV FS SCH ×3 (12:10→20:48)
[2022-07-14] MEDS: INSULIN LISPRO SLIDING SCALE 100 UNITS/ML VIAL SUBQ PRN ×3 (12:15→20:47)
[2022-07-14] MEDS: POTASSIUM CHLORIDE 10 MEQ TABER PO PRN (12:33)
[2022-07-14 12:49] VITALS: BP 135/78
[2022-07-14 13:35] LABS: BASOPHILS % (AUTO) 0.5 % (0.0-2.0); EOSINOPHILS # (AUTO) 0.1 K/uL (0-0.4); EOSINOPHILS % (AUTO) 1.1 % (0.0-4.0); HEMOGLOBIN 12.5 g/dL (12.0-16.0); LYMPHOCYTES # (AUTO) 2.5 K/uL (2.5-16.5); LYMPHOCYTES % (AUTO) 29.3 % (20.5-51.1); MEAN CORPUSCULAR HEMOGLOBIN 29 pg (27-31); MEAN CORPUSCULAR HGB CONC 33 g/dL (33-37); MONOCYTES # (AUTO) 1.4 K/uL (0.8-1.0); MONOCYTES % (AUTO) 16.5 % (1.7-9.3); NEUTROPHILS # (AUTO) 4.4 K/uL (1.8-7.7); NEUTROPHILS % (AUTO) 52.6 % (42.2-75.2); PLATELET COUNT (AUTO) 266 K/uL (140-450); RED BLOOD CELL COUNT(AUTO) 4.32 MIL/uL (4.20-5.40); RED CELL DISTRIBUTION WIDTH 15.7 % (11.6-13.7); WHITE BLOOD COUNT (AUTO) 8.5 K/uL (4.8-10.8)
[2022-07-14 13:44] LABS: ANION GAP 11.9 (8-16); CARBON DIOXIDE 27.1 mmol/L (21-32); CHLORIDE 99 mmol/L (98-107); CREATININE 0.9 mg/dL (0.6-1.3); GLUCOSE 267 mg/dL (74-106); SODIUM SERUM 135 mmol/L (136-145); UREA NITROGEN, BLOOD 10 mg/dL (7-18)
[2022-07-14 13:57] LABS: PROTHROMBIN TIME 11.1 secs (10.8-13.4)
[2022-07-14 14:05] LABS: AMYLASE 57 U/L (25-115); CHOL/HDL RATIO 1.3 (1-4.5); FREE T4 (FREE THYROXINE) 1.56 ng/dL (0.76-1.46); HDL CHOLESTEROL 50 mg/dL (40-60); LDL (CALC) 7 mg/dL (60-100); LIPASE 91 U/L (73-393); MAGNESIUM 1.3 mg/dL (1.8-2.4); PHOSPHORUS 2.9 mg/dL (2.5-4.9); THYROID STIMULATING HORMONE 0.48 uIU/mL (0.34-3.74); TRIGLYCERIDES 48 mg/dL (30-150)
--- NOTE | 2022-07-14 15:00 | NUR ---
RECEIVED CRITICAL VALUE REPORT FROM LAB, TROPONIN I: 142, LACTIC ACID: 3.8. INFORMED.
[2022-07-14 16:00] VITALS: BP 132/77
--- NOTE | 2022-07-14 16:28 | NUR ---
DC PLANNING 82 YEAR OLD FEMALE PATIENT ADMITTED FOR GENERALIZED WEAKNESS WITH PAST HX DEMENTIA ,ARTHRITIS,DM,HTN,HLD AND ANXIETY.CXR- SHOWS CARDIOMEGALY,AND PULM VASCULAR CONGESTION.LACTIC ACID DOWN TO 2.4 FROM 3.9 ON ADMISSION.ON AZITHROMYCIN.DC PLAN TENTATIVE WHEN PATIENTS RESPONDS TO TX.CM TO FOLLOW. Addendum: 07/16/22 at 1114 by AYE BLANC DC PLANNING PATIENT IS FOR DISCHARGED WITH [facility]NO OTHER NEEDS.
--- NOTE | 2022-07-14 19:00 | NUR ---
ENDORSED PT TO NIGHTSHIFT NURSE FOR CONTINUITY OF CARE. PT STABLE, RESTING IN BED, NO SIGNS OF DISTRESS. BED IN LOWEST POSITION, 2 SIDE RAILS UP, CALL LIGHT WITHIN REACH.
--- NOTE | 2022-07-14 19:30 | NUR ---
RECEIVED PATIENT FROM NURSE FOR CONYINUITY OF CARE. PATIENT IS STABLE
[2022-07-14 20:00] VITALS: BP 130/74
[2022-07-14] MEDS: DONEPEZIL 10 MG TAB PO SCH (20:42)
[2022-07-14] MEDS: DOCUSATE SODIUM 100 MG GELCAP PO SCH (20:43)
[2022-07-14] MEDS: OLANZapine 2.5 MG TAB PO SCH (20:44)
[2022-07-14] MEDS ORDERED: DOCUSATE SODIUM 100 MG GELCAP PO SCH (21:00)
[2022-07-14 22:03] LABS: BARBITURATE, URINE NEGATIVE ng/ml (NEG <=200); BENZODIAZEPINE, URINE NEGATIVE ng/mL (NEG <=200); CANNABINOID, URINE NEGATIVE ng/mL (NEG <=50); COCAINE, URINE NEGATIVE ng/mL (NEG <=300); OPIATE, URINE POSITIVE ng/mL (NEG <=2000); PHENCYCLIDINE SCREEN,URINE NEGATIVE ng/mL (NEG <=25)
--- NOTE | 2022-07-14 23:00 | NUR ---
MAGNESIUM SULFATE IV GIVEN FOR MAGNESIUM OF 1.3
[2022-07-15] VITALS: BP 134/72
[2022-07-15 04:00] VITALS: BP 128/76
[2022-07-15] MEDS: LEVOTHYROXINE 0.05 MG TAB PO SCH (06:06)
[2022-07-15] MEDS: INSULIN LISPRO SLIDING SCALE 100 UNITS/ML VIAL SUBQ PRN ×2 (06:30→17:28)
[2022-07-15] MEDS: BLOOD GLUCOSE MONITORING 1 DEV DEV FS SCH ×4 (06:32→20:40)
[2022-07-15 07:10] LABS: HEMOGLOBIN 12.3 g/dL (12.0-16.0); MEAN CORPUSCULAR HEMOGLOBIN 29 pg (27-31); MEAN CORPUSCULAR HGB CONC 33 g/dL (33-37); MEAN CORPUSCULAR VOLUME 86.7 fL (80-94); PLATELET COUNT (AUTO) 254 K/uL (140-450); RED BLOOD CELL COUNT(AUTO) 4.26 MIL/uL (4.20-5.40); RED CELL DISTRIBUTION WIDTH 15.7 % (11.6-13.7); WHITE BLOOD COUNT (AUTO) 5.7 K/uL (4.8-10.8)
[2022-07-15 07:21] LABS: ANION GAP 12.8 (8-16); CARBON DIOXIDE 26.2 mmol/L (21-32); CHLORIDE 103 mmol/L (98-107); CREATININE 0.9 mg/dL (0.6-1.3); GLUCOSE 260 mg/dL (74-106); SODIUM SERUM 139 mmol/L (136-145); UREA NITROGEN, BLOOD 12 mg/dL (7-18)
[2022-07-15 07:53] LABS: MAGNESIUM 1.8 mg/dL (1.8-2.4); PHOSPHORUS 3.2 mg/dL (2.5-4.9)
[2022-07-15 08:00] VITALS: BP 134/67
--- NOTE | 2022-07-15 08:00 | NUR ---
0800: RECEIVED REPORT FROM ALONA BAXTER . PT RESTING IN BED EYES CLOSED. NO GAURDING OR GRIMACING. NO ACUTE DISTRESS NOTED AT THIS TIME. [id number].
[2022-07-15] MEDS ORDERED: METOPROLOL SUCCINATE 50 MG TABER PO SCH (09:00)
[2022-07-15] MEDS ORDERED: NON-FORMULARY ITEM (Omeprazole* (Prilosec*) 20 MG) PO SCH (09:00)
[2022-07-15] MEDS ORDERED: NON-FORMULARY ITEM (Esomeprazole Magnesium* (Nexium*) 40 MG) PO SCH (09:00)
[2022-07-15] MEDS: MEMANTINE 10 MG TAB PO SCH (09:09)
[2022-07-15] MEDS: amLODIPine 5 MG TAB PO SCH (09:10)
[2022-07-15] MEDS: DOCUSATE SODIUM 100 MG GELCAP PO SCH ×2 (09:11→20:47)
[2022-07-15] MEDS: FUROSEMIDE 40 MG TAB PO SCH (09:11)
[2022-07-15] MEDS: ATORVASTATIN 20 MG TAB PO SCH (09:12)
[2022-07-15] MEDS: TOLTERODINE LA 4 MG CAPER PO SCH (09:13)
[2022-07-15] MEDS: PANTOPRAZOLE 40 MG INJ VIAL IVP SCH (09:13)
[2022-07-15] MEDS: ASPIRIN 81 MG TAB.CHEW PO SCH (09:14)
[2022-07-15] MEDS: MONTELUKAST SODIUM 10 MG TAB PO SCH (09:15)
[2022-07-15] MEDS: METOPROLOL SUCCINATE 50 MG TABER PO SCH (09:16)
[2022-07-15 09:17] LABS: MONOCYTES % (MANUAL) 13 % (5-12)
[2022-07-15 09:18] LABS: LYMPHOCYTES % (MANUAL) 42 % (20-46)
[2022-07-15] MEDS: metFORMIN 500 MG TAB PO SCH (09:45)
[2022-07-15 12:00] VITALS: BP 122/65
[2022-07-15] MEDS: AZITHROMYCIN 250 MG in DEXTROSE 5% 250 ML IV SCH (13:25)
[2022-07-15 16:00] VITALS: BP 120/66
--- NOTE | 2022-07-15 19:20 | NUR ---
0715: REPORT GIVEN TO ALONA BAXTER. PT RESTING IN BED NO GUARDING OR GRIMACING. NO ACUTE DISTRESS NOTED AT THIS TIME. [id number].
--- NOTE | 2022-07-15 19:25 | NUR ---
received patient from am nurse for continuity of care.pt is stable
[2022-07-15 20:00] VITALS: BP 126/62
[2022-07-15] MEDS: DONEPEZIL 10 MG TAB PO SCH (20:47)
[2022-07-15] MEDS: OLANZapine 2.5 MG TAB PO SCH (20:48)
[2022-07-15] MEDS: NYSTATIN CRE 100 MU/GM 15 GM TUBE TP SCH (20:58)
[2022-07-15] MEDS: POTASSIUM CHLORIDE 10 MEQ TABER PO PRN (23:43)
[2022-07-16] VITALS: BP 122/53
[2022-07-16 04:00] VITALS: BP 102/57
[2022-07-16] MEDS: LEVOTHYROXINE 0.05 MG TAB PO SCH (06:18)
[2022-07-16] MEDS: INSULIN LISPRO SLIDING SCALE 100 UNITS/ML VIAL SUBQ PRN ×2 (06:36→12:29)
[2022-07-16] MEDS: BLOOD GLUCOSE MONITORING 1 DEV DEV FS SCH ×2 (06:38→11:30)
[2022-07-16 06:39] LABS: BASOPHILS % (AUTO) 0.5 % (0.0-2.0); EOSINOPHILS # (AUTO) 0.3 K/uL (0-0.4); EOSINOPHILS % (AUTO) 4.6 % (0.0-4.0); HEMATOCRIT 37.3 % (36-48); HEMOGLOBIN 12.3 g/dL (12.0-16.0); LYMPHOCYTES # (AUTO) 3.5 K/uL (2.5-16.5); MEAN CORPUSCULAR HEMOGLOBIN 29 pg (27-31); MEAN CORPUSCULAR HGB CONC 33 g/dL (33-37); MONOCYTES # (AUTO) 0.9 K/uL (0.8-1.0); MONOCYTES % (AUTO) 12.1 % (1.7-9.3); NEUTROPHILS # (AUTO) 2.5 K/uL (1.8-7.7); NEUTROPHILS % (AUTO) 34.8 % (42.2-75.2); PLATELET COUNT (AUTO) 284 K/uL (140-450); RED BLOOD CELL COUNT(AUTO) 4.29 MIL/uL (4.20-5.40); WHITE BLOOD COUNT (AUTO) 7.3 K/uL (4.8-10.8)
--- NOTE | 2022-07-16 07:27 | NUR ---
RECEIVED REPORT FROM CARBONATOR NURSE FOR CONTINUITY OF CARE. PATIENT LYING DOWN IN BED, AROUSABLE BY VOICE. NO DISTRESS NOTED. IV SITE INTACT, PATIENT, ON SALINE LOCK. REVIEWED PLAN OF CARE WITH PATIENT. REINFORCEMENT NEEDED. SAFETY MEASURES IN PLACE, LEONORA LIGHT WITHIN REACH. WILL CONTINUE TO MONITOR.
[2022-07-16 08:00] VITALS: BP 139/70
[2022-07-16] MEDS: DOCUSATE SODIUM 100 MG GELCAP PO SCH (09:00)
[2022-07-16] MEDS: PANTOPRAZOLE 40 MG INJ VIAL IVP SCH (09:54)
[2022-07-16] MEDS: amLODIPine 5 MG TAB PO SCH (09:55)
[2022-07-16] MEDS: TOLTERODINE LA 4 MG CAPER PO SCH (09:55)
[2022-07-16] MEDS: metFORMIN 500 MG TAB PO SCH (09:55)
[2022-07-16] MEDS: ASPIRIN 81 MG TAB.CHEW PO SCH (09:55)
[2022-07-16] MEDS: FUROSEMIDE 40 MG TAB PO SCH (09:56)
[2022-07-16] MEDS: ATORVASTATIN 20 MG TAB PO SCH (09:56)
[2022-07-16] MEDS: MEMANTINE 10 MG TAB PO SCH (09:56)
[2022-07-16] MEDS: NYSTATIN CRE 100 MU/GM 15 GM TUBE TP SCH (09:57)
[2022-07-16] MEDS: METOPROLOL SUCCINATE 50 MG TABER PO SCH (09:57)
[2022-07-16] MEDS: MONTELUKAST SODIUM 10 MG TAB PO SCH (09:57)
--- NOTE | 2022-07-16 10:00 | NUR ---
SCHEDULED MEDICATIONS DUE GIVEN. WILL CONTINUE TO MONITOR.
--- NOTE | 2022-07-16 10:05 | NUR ---
FOUND PT ON NC - REMOVED NC - SATURATIONS STILL IN HIGH 90S. NO DISTRESS NOTED.
--- NOTE | 2022-07-16 10:49 | NUR ---
RECEIVED [facility] ORDER. FAXED ALL PAPERWORK TO [facility]. WILL FOLLOW UP WHEN FAX CONFIRMATION COMES BACK. Addendum: 07/16/22 at 1117 by NICOLE DUNHAM RECEIVED CALL FROM [facility] PATIENT WAS ACCEPTED AND THEY WILL CONTACT FAMILY. CHARGE NURSE ROBERT AND CALLED [facility] [place] AND BUT GOT NO ANSWER AND THERE WAS NO OPTION TO LEAVE VOICE MAIL ON EITHER.
[2022-07-16] MEDS: AZITHROMYCIN 250 MG in DEXTROSE 5% 250 ML IV SCH (11:00)
[2022-07-16 12:00] VITALS: BP 120/58
[2022-07-16 12:22] LABS: ANION GAP 12.3 (8-16); CARBON DIOXIDE 27.2 mmol/L (21-32); CHLORIDE 107 mmol/L (98-107); CREATININE 0.8 mg/dL (0.6-1.3); GLUCOSE 203 mg/dL (74-106); POTASSIUM 3.5 mmol/L (3.5-5.1); SODIUM SERUM 143 mmol/L (136-145); UREA NITROGEN, BLOOD 9 mg/dL (7-18)
--- NOTE | 2022-07-16 12:25 | NUR ---
SCHEDULED MEDICATIONS DUE GIVEN. WILL CONTINUE TO MONITOR.
[2022-07-16 12:27] LABS: MAGNESIUM 1.3 mg/dL (1.8-2.4); PHOSPHORUS 2.8 mg/dL (2.5-4.9)
--- NOTE | 2022-07-16 12:31 | NUR ---
SCHEDULED MEDICATIONS DUE GIVEN. WILL CONTINUE TO MONITOR.
--- NOTE | 2022-07-16 13:20 | NUR ---
DAUGHTER AT BEDSIDE. DISCHARGE INSTRUCTIONS PROVIDED AND ANSWERED ALL OF PATIENT'S/DAUGHTER'S QUESTIONS. IV SITE REMOVED WITH MINIMAL BLOOD AND LUMEN INTACT. ESCORTED PATIENT DOWN TO LOBBY VIA WHEELCHAIR. PATIENT DISCHARGED TO HOME WITH HOME HEALTH AT THIS TIME.
== END 2022-07-16 13:30 | disposition home health service (06) | DRG 189 ==
LOC: MED 01:40 → MTU 07:10
DX: J96.01 Acute respiratory failure with hypoxia (principal); E87.1 Hypo-osmolality and hyponatremia; E11.65 Type 2 diabetes mellitus with hyperglycemia; E86.0 Dehydration; E87.5 Hyperkalemia; R62.7 Adult failure to thrive; F03.90 Unspecified dementia, unspecified severity, without behavioral disturbance, psychotic disturbance, mood disturbance, and anxiety; E78.5 Hyperlipidemia, unspecified; F41.9 Anxiety disorder, unspecified; E88.09 Other disorders of plasma-protein metabolism, not elsewhere classified; E83.51 Hypocalcemia; L30.4 Erythema intertrigo; Z20.822 Contact with and (suspected) exposure to COVID-19; Z79.899 Other long term (current) drug therapy; Z79.82 Long term (current) use of aspirin; Z79.891 Long term (current) use of opiate analgesic; Z68.30 Body mass index [BMI] 30.0-30.9, adult
CPT/HCPCS: 36415; 71045; 80048; 80053; 80305; 81003; 82140; 82150; 82948; 83036; 83605; 83690; 83735; 83880; 84100; 84439; 84443; 84484; 85025; 85610; 85730; 87040; 87081; 87086; 87420; 92526; 93005; 96361; 96365; 96366; 96367; 97112; 97116; 97163-GP; 97530; 99285; C9113; J0456; J0696; J1644; J1815; J3475; J3480; J7060; Q0092

== ENCOUNTER 2022-09-30 11:25 | Emergency (ER) | payer OTHER, MEDICAID ==
[~2022-09-30] VITALS: Ht 157.5 cm; Wt 74.8 kg
[~2022-09-30 11:25] MED LIST changes: -AMLO10TA PO; -ATOR20TA40 PO; -DETLA4 PO; -DOCU-299 PO; +DONE5TAB6 PO; -ESOM40EC PO; +FURO-570 PO; -HYDR-5191 PO; -MECL-303 PO; +MEMA10TA PO; -MONT-72 PO
[2022-09-30 11:47] VITALS: BP 137/70
--- NOTE | 2022-09-30 12:10 | NUR ---
PATIENT PRESENTS TO ED WITH RASH IN GROIN AREA . PT STATES SHE DOES NOT KNOW WHEN THE PAIN STARTED. DENIES N/V/D; SKIN IS PINK/WARM/DRY; AAOX4 WITH EVEN AND AMBULATES WITH ASSISTANCE; LUNGS CLEAR BL; HR EVEN AND REGULAR; PT DENIES ANY FEVER, CP, SOB, OR COUGH AT THIS TIME; PATIENT STATES PAIN OF 8/10 AT THIS TIME; VSS; PATIENT POSITIONED FOR COMFORT; HOB ELEVATED; BEDRAILS UP X2; BED DOWN. ER MD MADE AWARE OF PT STATUS.
[2022-09-30] MEDS ORDERED: CEPH-588 PO (12:27)
[2022-09-30] MEDS ORDERED: HYD2.5O TP (12:27)
[2022-09-30 12:35] VITALS: BP 137/76
--- NOTE | 2022-09-30 13:32 | NUR ---
The patient's care was reviewed and supervised by [place] [facility], RN.
== END 2022-09-30 13:32 | disposition home or self-care (01) ==
LOC: MED 11:25
DX: B35.6 Tinea cruris (principal); L03.314 Cellulitis of groin; F03.90 Unspecified dementia, unspecified severity, without behavioral disturbance, psychotic disturbance, mood disturbance, and anxiety; J45.909 Unspecified asthma, uncomplicated; E11.9 Type 2 diabetes mellitus without complications; I10 Essential (primary) hypertension; E07.9 Disorder of thyroid, unspecified; Z98.890 Other specified postprocedural states; Z79.84 Long term (current) use of oral hypoglycemic drugs; Z79.899 Other long term (current) drug therapy
CPT/HCPCS: 99283

== ENCOUNTER 2023-05-13 12:19 | Inpatient (IN) | payer OTHER, MEDICAID ==
[~2023-05-13] VITALS: Ht 170.2 cm; Wt 77.1 kg
[2023-05-13] VITALS (8 sets, daily range): BP systolic 131; BP diastolic 64; PULSE 75; RESP 16; TEMP 98.9; O2SAT 96–98
[~2023-05-13 12:19] MED LIST changes: +CEPH-588 PO; +HYD2.5O TP
[2023-05-13 13:37] LABS: BASOPHILS % (AUTO) 0.7 % (0.0-2.0); EOSINOPHILS # (AUTO) 0.1 K/uL (0-0.4); EOSINOPHILS % (AUTO) 2.4 % (0.0-4.0); HEMATOCRIT 38.5 % (36-48); LYMPHOCYTES # (AUTO) 1.5 K/uL (2.5-16.5); MEAN CORPUSCULAR HEMOGLOBIN 30 pg (27-31); MEAN CORPUSCULAR HGB CONC 34 g/dL (33-37); MEAN CORPUSCULAR VOLUME 89.5 fL (80-94); MONOCYTES # (AUTO) 0.9 K/uL (0.8-1.0); MONOCYTES % (AUTO) 15.5 % (1.7-9.3); NEUTROPHILS # (AUTO) 2.9 K/uL (1.8-7.7); NEUTROPHILS % (AUTO) 53.4 % (42.2-75.2); PLATELET COUNT (AUTO) 308 K/uL (140-450); RED BLOOD CELL COUNT(AUTO) 4.31 MIL/uL (4.20-5.40); RED CELL DISTRIBUTION WIDTH 14.6 % (11.6-13.7); WHITE BLOOD COUNT (AUTO) 5.5 K/uL (4.8-10.8)
[2023-05-13 13:50] LABS: ANION GAP 14.2 (8-16); CALCIUM 8.8 mg/dL (8.5-10.1); CARBON DIOXIDE 22.9 mmol/L (21-32); CHLORIDE 101 mmol/L (98-107); CREATININE 1.1 mg/dL (0.6-1.3); GLUCOSE 322 mg/dL (74-106); POTASSIUM 4.1 mmol/L (3.5-5.1); SODIUM SERUM 134 mmol/L (136-145); UREA NITROGEN, BLOOD 19 mg/dL (7-18)
[2023-05-13 14:02] LABS: ALANINE AMINOTRANSFERASE 19 U/L (12-78); ALBUMIN 2.9 g/dL (3.4-5.0); ALKALINE PHOSPHATASE 136 U/L (50-136); ASPARTATE AMINOTRANSFERASE 33 U/L (15-37); BILIRUBIN,DIRECT 0.2 mg/dL (0.0-0.3); TOTAL BILIRUBIN 0.8 mg/dL (0.0-1.0); TOTAL PROTEIN, SERUM 8.9 g/dL (6.4-8.2)
[2023-05-13] MEDS: MECLIZINE 25 MG TAB PO ONE (14:11)
[2023-05-13 15:13] LABS: APPEARANCE,URINE CLEAR (CLEAR); BILIRUBIN,URINE NEGATIVE (NEGATIVE); BLOOD, URINE NEGATIVE (NEGATIVE); COLOR,URINE YELLOW (YELLOW); LEUKOCYTE ESTERASE ,URINE NEGATIVE (NEGATIVE); NITRITE, URINE NEGATIVE (NEGATIVE); PROTEIN,URINE NEGATIVE (NEGATIVE); UGLUCOSE 1+ (NEGATIVE); UROBILINOGEN,URINE 0.2 EU/dL (0.2 - 1)
[2023-05-13 15:21] LABS: BACTERIA,URINE None Seen /HPF (None Seen); MUCUS,URINE 1+ /LPF (None Seen); RBC,URINE 0-5 /HPF (0-5); SQUAMOUS EPITHELIAL CELL,UR 4-10 (MOD) /LPF (0-3 (FEW)); TRICHOMONAS,URINE None Seen /HPF (None Seen); WBC,URINE 0-5 /HPF (0-5); YEAST,URINE None Seen /HPF (None Seen)
[2023-05-13] MEDS ORDERED: MONT-72 PO (16:18)
[2023-05-13] MEDS ORDERED: DOCU-3 PO (16:18)
[2023-05-13] MEDS ORDERED: ATOR20TA40 PO (16:18)
[2023-05-13] MEDS ORDERED: HYDR-4924 PO (16:18)
[2023-05-13] MEDS ORDERED: AMLO10TA88 PO (16:18)
[2023-05-13] MEDS ORDERED: TOLT4CAP PO (16:18)
[2023-05-13] MEDS ORDERED: OMEP-283 PO (16:18)
[2023-05-13] MEDS ORDERED: ONDANSETRON 4 MG/2 ML VIAL IVP PRN (17:10)
[2023-05-13] MEDS ORDERED: ACETAMINOPHEN 325 MG TAB PO PRN (17:10)
[2023-05-13] MEDS: NACL 0.9% 1,000 ML IV SCH (17:10)
[2023-05-13] MEDS ORDERED: DEXTROSE 50% 50 ML SYR IVP PRN (17:25)
[2023-05-13 18:01] LABS: FREE T4 (FREE THYROXINE) 1.39 ng/dL (0.76-1.46); THYROID STIMULATING HORMONE 1.57 uIU/mL (0.34-3.74)
[2023-05-13] MEDS: BLOOD GLUCOSE MONITORING 1 DEV DEV FS SCH (21:06)
[2023-05-13] MEDS: INSULIN LISPRO SLIDING SCALE 100 UNITS/ML VIAL SUBQ PRN (21:20)
[2023-05-13] MEDS: DOCUSATE SODIUM 100 MG GELCAP PO SCH (21:23)
[2023-05-13] MEDS: HYDROcodone/APAP 5/325 MG 1 TAB TAB PO PRN (23:01)
[2023-05-14] VITALS (7 sets, daily range): BP systolic 129–145; BP diastolic 65–73; PULSE 69–93; RESP 18–20; TEMP 98–98.8; O2SAT 92–99
[2023-05-14] MEDS: LEVOTHYROXINE 0.05 MG TAB PO SCH (06:40)
[2023-05-14 07:19] LABS: BASOPHILS % (AUTO) 0.5 % (0.0-2.0); EOSINOPHILS # (AUTO) 0.2 K/uL (0-0.4); EOSINOPHILS % (AUTO) 2.6 % (0.0-4.0); HEMATOCRIT 38.9 % (36-48); HEMOGLOBIN 13.2 g/dL (12.0-16.0); LYMPHOCYTES # (AUTO) 1.6 K/uL (2.5-16.5); MEAN CORPUSCULAR HEMOGLOBIN 30 pg (27-31); MEAN CORPUSCULAR HGB CONC 34 g/dL (33-37); MEAN CORPUSCULAR VOLUME 89.1 fL (80-94); MONOCYTES # (AUTO) 1.3 K/uL (0.8-1.0); MONOCYTES % (AUTO) 20.3 % (1.7-9.3); NEUTROPHILS # (AUTO) 3.3 K/uL (1.8-7.7); NEUTROPHILS % (AUTO) 51.6 % (42.2-75.2); PLATELET COUNT (AUTO) 272 K/uL (140-450); RED BLOOD CELL COUNT(AUTO) 4.37 MIL/uL (4.20-5.40); RED CELL DISTRIBUTION WIDTH 14.8 % (11.6-13.7); WHITE BLOOD COUNT (AUTO) 6.5 K/uL (4.8-10.8)
[2023-05-14 07:40] LABS: ALANINE AMINOTRANSFERASE 13 U/L (12-78); ALKALINE PHOSPHATASE 123 U/L (50-136); ANION GAP 12.9 (8-16); ASPARTATE AMINOTRANSFERASE 29 U/L (15-37); CALCIUM 8.8 mg/dL (8.5-10.1); CARBON DIOXIDE 26.7 mmol/L (21-32); CHLORIDE 102 mmol/L (98-107); CREATININE 0.7 mg/dL (0.6-1.3); GLUCOSE 140 mg/dL (74-106); MAGNESIUM 1.5 mg/dL (1.8-2.4); PHOSPHORUS 3.8 mg/dL (2.5-4.9); POTASSIUM 3.6 mmol/L (3.5-5.1); SODIUM SERUM 138 mmol/L (136-145); TOTAL BILIRUBIN 0.9 mg/dL (0.0-1.0); TOTAL PROTEIN, SERUM 9.1 g/dL (6.4-8.2); UREA NITROGEN, BLOOD 10 mg/dL (7-18)
[2023-05-14] MEDS: ATORVASTATIN 20 MG TAB PO SCH (09:52)
[2023-05-14] MEDS: amLODIPine 5 MG TAB PO SCH (09:52)
[2023-05-14] MEDS: ASPIRIN 81 MG TAB.CHEW PO SCH (09:52)
[2023-05-14] MEDS: MEMANTINE 10 MG TAB PO SCH (09:52)
[2023-05-14] MEDS ORDERED: MECLIZINE 25 MG TAB PO PRN (12:40)
[2023-05-14] MEDS: DONEPEZIL 10 MG TAB PO SCH (17:00)
[2023-05-14] MEDS ORDERED: hydrALAZINE 20 MG/ML VIAL IVP PRN (19:40)
[2023-05-14] MEDS: MAG SULF 2000 MG/WATER PREMIX 50 ML IV ONE (21:51)
[2023-05-15] VITALS: BP 140/65; PULSE 76; PULSE 77; RESP 18; TEMP 98.3; O2SAT 93
[2023-05-15 04:00] VITALS: BP 106/54; PULSE 67; RESP 18; TEMP 97.5; O2SAT 96
[2023-05-15 06:29] LABS: BASOPHILS # (AUTO) 0.1 K/uL (0.00-0.22); EOSINOPHILS # (AUTO) 0.2 K/uL (0-0.4); EOSINOPHILS % (AUTO) 2.7 % (0.0-4.0); HEMATOCRIT 37.4 % (36-48); HEMOGLOBIN 12.9 g/dL (12.0-16.0); LYMPHOCYTES # (AUTO) 2.6 K/uL (2.5-16.5); MEAN CORPUSCULAR HEMOGLOBIN 31 pg (27-31); MEAN CORPUSCULAR HGB CONC 35 g/dL (33-37); MEAN CORPUSCULAR VOLUME 88.3 fL (80-94); MONOCYTES # (AUTO) 1.1 K/uL (0.8-1.0); MONOCYTES % (AUTO) 19.4 % (1.7-9.3); NEUTROPHILS # (AUTO) 1.7 K/uL (1.8-7.7); NEUTROPHILS % (AUTO) 30.9 % (42.2-75.2); PLATELET COUNT (AUTO) 343 K/uL (140-450); RED BLOOD CELL COUNT(AUTO) 4.23 MIL/uL (4.20-5.40); RED CELL DISTRIBUTION WIDTH 14.7 % (11.6-13.7); WHITE BLOOD COUNT (AUTO) 5.6 K/uL (4.8-10.8)
[2023-05-15 06:32] LABS: ALANINE AMINOTRANSFERASE 15 U/L (12-78); ALBUMIN 2.8 g/dL (3.4-5.0); ALKALINE PHOSPHATASE 109 U/L (50-136); ASPARTATE AMINOTRANSFERASE 35 U/L (15-37); CALCIUM 8.4 mg/dL (8.5-10.1); CARBON DIOXIDE 24.4 mmol/L (21-32); CHLORIDE 107 mmol/L (98-107); CREATININE 0.7 mg/dL (0.6-1.3); GLUCOSE 146 mg/dL (74-106); MAGNESIUM 2.1 mg/dL (1.8-2.4); PHOSPHORUS 3.8 mg/dL (2.5-4.9); POTASSIUM 3.4 mmol/L (3.5-5.1); SODIUM SERUM 139 mmol/L (136-145); TOTAL BILIRUBIN 0.7 mg/dL (0.0-1.0); TOTAL PROTEIN, SERUM 8.7 g/dL (6.4-8.2); UREA NITROGEN, BLOOD 8 mg/dL (7-18)
[2023-05-15 08:42] VITALS: PULSE 88; RESP 20; O2SAT 99
== END 2023-05-15 17:55 | disposition home health service (06) | DRG 312 ==
LOC: MED 12:19 → MTU 17:12
PROVIDERS: ADMIT Family Medicine; ATTEND Family Medicine
DX: I95.1 Orthostatic hypotension (principal); I50.32 Chronic diastolic (congestive) heart failure; H81.10 Benign paroxysmal vertigo, unspecified ear; F03.90 Unspecified dementia, unspecified severity, without behavioral disturbance, psychotic disturbance, mood disturbance, and anxiety; E11.9 Type 2 diabetes mellitus without complications; F41.9 Anxiety disorder, unspecified; E03.9 Hypothyroidism, unspecified; J45.909 Unspecified asthma, uncomplicated; E78.5 Hyperlipidemia, unspecified; I11.0 Hypertensive heart disease with heart failure
CPT/HCPCS: 36415; 70450; 71045; 80048; 80053; 80076; 81001; 82948; 83735; 84100; 84439; 84443; 84484; 85025; 93005; 97163-GP; 97530; 99285; J3475; J8597; Q9967

== ENCOUNTER 2023-07-05 10:21 | Emergency (ER) | payer OTHER, MEDICAID ==
[~2023-07-05] VITALS: Ht 165.1 cm; Wt 74.8 kg
[~2023-07-05 10:21] MED LIST changes: +AMLO10TA88 PO; +ATOR20TA40 PO; -CEPH-588 PO; +DOCU-3 PO; -FURO-570 PO; -HYD2.5O TP; +MONT-72 PO; +OMEP-283 PO; +TOLT4CAP PO
[2023-07-05 10:34] VITALS: BP 121/80; PULSE 83; RESP 14; TEMP 97.7; O2SAT 96
[2023-07-05] MEDS: fentaNYL citrate 0.05 MG/ML VIAL IM ONE (11:57)
[2023-07-05] MEDS: BACITRACIN OINT 500 UNITS/GM PKT TP ONE (11:58)
[2023-07-05] MEDS ORDERED: CEPH-588 PO (13:11)
[2023-07-05 14:05] VITALS: BP 125/64; PULSE 85; RESP 18; TEMP 36.89184; O2SAT 97
== END 2023-07-05 14:05 | disposition home or self-care (01) ==
LOC: MED 10:21
DX: T25.222A Burn of second degree of left foot, initial encounter (principal); T31.0 Burns involving less than 10% of body surface; I10 Essential (primary) hypertension; E11.9 Type 2 diabetes mellitus without complications; F03.90 Unspecified dementia, unspecified severity, without behavioral disturbance, psychotic disturbance, mood disturbance, and anxiety; J45.909 Unspecified asthma, uncomplicated; Z79.899 Other long term (current) drug therapy; X12.XXXA Contact with other hot fluids, initial encounter; Y93.89 Activity, other specified; Y92.89 Other specified places as the place of occurrence of the external cause; Y99.8 Other external cause status
CPT/HCPCS: 16020; 82948; 90471; 90715; 96372; 99284; J3010

== ENCOUNTER 2023-07-07 11:46 | Emergency (ER) | payer OTHER, MEDICAID ==
[~2023-07-07] VITALS: Ht 165.1 cm; Wt 74.8 kg
[~2023-07-07 11:46] MED LIST changes: +CEPH-588 PO
[2023-07-07 11:48] VITALS: BP 139/70; PULSE 89; RESP 18; TEMP 97.8; O2SAT 99
[2023-07-07] MEDS ORDERED: BACI-105 TP (13:10)
[2023-07-07] MEDS: BACITRACIN OINT 500 UNITS/GM PKT TP ONE ×2 (13:40→13:41)
[2023-07-07 13:45] VITALS: BP 128/65; PULSE 84; RESP 20; TEMP 99.3; O2SAT 100
[2023-07-07] MEDS ORDERED: BENZ200C4 PO (13:51)
[2023-07-07] MEDS ORDERED: DEXT15SY7 PO (13:51)
== END 2023-07-07 13:45 | disposition home or self-care (01) ==
LOC: MED 11:46
DX: T25.122A Burn of first degree of left foot, initial encounter (principal); T31.0 Burns involving less than 10% of body surface; R05.9 Cough, unspecified; Z48.00 Encounter for change or removal of nonsurgical wound dressing; J45.909 Unspecified asthma, uncomplicated; E03.9 Hypothyroidism, unspecified; I11.9 Hypertensive heart disease without heart failure; E11.9 Type 2 diabetes mellitus without complications; Z79.4 Long term (current) use of insulin; Z79.899 Other long term (current) drug therapy; X08.8XXA Exposure to other specified smoke, fire and flames, initial encounter; Y93.89 Activity, other specified; Y92.89 Other specified places as the place of occurrence of the external cause; Y99.8 Other external cause status
CPT/HCPCS: 99283